=== PATIENT | male | born 2005 | race Caucasian/White ===

== ENCOUNTER 2023-07-28 09:06 | Outpatient (AMB) | payer OTHER, SELFPAY ==
--- NOTE | 2023-07-28 09:10 | A.OFFVIS_ITS ---
Intake Intake Visit Reasons: E-BEE RANCHER: Symptomatic Epilepsy - # not in service Intake Note: Pt presents to the office for new pt evaluation for seizures. He devolped these episodes when he was about 8 years old. He was statrted on Oxcarbazepine and this seems to be working. He hasn't had a seizure in over 2 years. Senior Officer Required: No Allergies No Known Allergies Allergy (Verified 07/28/23 09:20) Medication List - Last Reconciled 07/28/23 by Rossy Candelario MD clindamycin phosphate 1% 1 appl topical BEDTIME latanoprost 0.005% 1 drp ophthalmic (eye) DAILY oxcarbazepine ER (Oxtellar XR) 1,200 mg (2 x 600 mg) PO DAILY oxcarbazepine ER (Oxtellar XR) 300 mg PO DAILY sennosides (senna) 8.6 mg PO DAILY HPI HPI Comments History of Present Illness Details 18y/o with h/o autism spectrum disorder , focal epilepsy and alcohol drug syndrome comes for further management. He is accompanied by his step father who helps with history. His seizures are staring episodes , spacing out with looking to right, eyes looking upwards and some hand twitching lasting seconds. He still has minor episodes . Last major episode was in 2018 . He has been well controlled on Oxtellar XR 300 1 tab 600mg 2 tabs qd. His behavior is good.He sleeps good. He is being home schooled- he graduated high school .His short term memory is not good. He is independent in all his ADLS and right learning life skills like cooking , cleaning etc. [facility] Medical History alcohol syndrome Asthma Autism spectrum disorder Epilepsy Surgical History H/O Spinal surgery Household Members: Family Housing: House Are you a primary neonatal critical care nurse to a significant other at home: Yes Alcohol intake: never Patient Tobacco Use Status: Never used Tobacco Review of Systems Neuro Reports seizure-like activity Physical Exam Const General: cooperative and comfortable Nutritional Appearance: average body habitus Orientation/consciousness: patient oriented x3 Eyes Pupils: Equal, round and reactive pupils present Neuro General: patient oriented x3, gait normal, tone normal and moves all extremities Cranial nerves: Yes Facial sensation intact/muscles of mastication intact, Yes Equal, round and reactive pupils present, Yes Bilaterally intact EOM present, Yes Nystagmus not present, Yes Normal facial strength present, Yes Midline tongue present and Yes Symmetric palate elevation present Cognition (Neuro): normal cognition Gait exam (Neuro): Normal gait present Motor exam (neuro): 5/5 motor strength present throughout and Normal motor muscle tone present throughout Deep tendon reflexes (DTR's): Right triceps reflex intensity grade: 2+, Left triceps reflex intensity grade: 2+, Rt Biceps (C5, C6): 2+, Left biceps reflex intensity grade: 2+, Right brachioradialis reflex intensity grade: 2+, Left brachioradialis reflex intensity grade: 2+, Right patellar reflex intensity grade: 3+ and Left patellar reflex intensity grade: 3+ Coordination: [id number] test normal Assessment & Plan Assessment & Plan (1) Epilepsy: Comment: complex partial seizures Code(s): G40.909 - Epilepsy, unspecified, not intractable, without status epilepticus (2) Autism spectrum disorder: Code(s): F84.0 - Autistic disorder Plan Continue oxtellar XR 300mg 1tab and 600mg 2 tabs qd ( total 1500mg qd) Will check his CBC and CMP Refer to [facility]psy [facility] for further management Orders: Orders Comprehensive Met. Panel Today G40.909 - Epilepsy, unspecified, not intractable, without status epilepticus Complete Blood Count Auto Diff Today G40.909 - Epilepsy, unspecified, not intractable, without status epilepticus Referrals Neurology Referral G40.909 - Epilepsy, unspecified, not intractable, without status epilepticus Medications: New oxcarbazepine ER (Oxtellar XR) must be taken on empty stomach; no food at least 2 hrs before or 1 hr after dose 1,200 mg (2 x 600 mg) PO DAILY 60 tabs 6RF oxcarbazepine ER (Oxtellar XR) must be taken on empty stomach; no food at least 2 hrs before or 1 hr after dose 300 mg PO DAILY 30 tabs 6RF Coding Level of Care Code New Pt Level 4 (96073) Diagnoses Epilepsy G40.909 Autism spectrum disorder F84.0
== END 2023-07-28 09:52 | disposition home or self-care (01) ==
PROVIDERS: PCP Pediatrics; Visit Provider Psychiatry & Neurology Neurology
DX: G40.909 Epilepsy, unspecified, not intractable, without status epilepticus (principal); F84.0 Autistic disorder
CPT/HCPCS: 99204

== ENCOUNTER → 2023-07-28 09:06 | Outpatient (BNVA) | payer OTHER, MEDICAID, SELFPAY | PROVIDERS: PCP Pediatrics; Visit Provider Psychiatry & Neurology Neurology ==

== ENCOUNTER 2025-01-27 09:05 | Outpatient (AMB) | payer OTHER, SELFPAY ==
--- NOTE | 2025-01-27 09:09 | MHC.OFFVIS ---
Vital Signs 01/27/25 09:11 Height 5 ft 3 in Weight 149 lb BMI 26.4 BP 110/50 L Blood Pressure Location Lt brachial Position Sitting Pulse 93 Pulse Source Pulse Oximeter Pulse Oximetry (%) 97 Oxygen Delivery Method Room Air Intake Visit Reasons: f/u for seizures last seen 2022 Intake Note: Patient presents follow up Seizures, Never seen [facility](referral not received on their end). Patient has not had any seizures due to Oxtellar. Accompanied by: Father Allergies No Known Allergies Allergy (Verified 01/27/25 09:14) HPI Comments Details: 19 y/o with h/o autism spectrum disorder, focal epilepsy and alcohol drug syndrome comes for further management. He is accompanied by his step father, Mr. Zapien who helps with history, he adopted Nasir Kraus at 5 weeks. He has been grand-mal seizure free since 11 years of age in 2018, now he still has micro-seizures and has been having them for a while. His grand-mal seizures are well managed on oxcarbazapine ER 2 (600mg) am along with 1 (300mg) in the morning on an empty stomach and waits one hour before having his breakfast. He was being seen by a Pediatric Neurologist at [facility], however since turning 19 he is referred to us for management. His seizures are staring episodes, spacing out with looking to the right, eyes looking upwards and some hand twitching lasting seconds. He still has minor episodes. He has autism and his behavior is good. He sleeps well goes to bed at 11pm and wakes up at 8am. Asthma is well controlled, occasional environmental triggers. He is now enrolled in life skills, learning to cook, and independent in all ADLs. His short term memory is not good, money management tends to be difficult for him and can perform multiple tasks when mindful. Needs step by step instructions with tasks. He likes dancing and goes to [employer] in [place] 2x per week. His diet is okay, he gets constipated, takes laxatives, medicated enema as needed, with miralax or colace. Drinks 4, 12 ounce of water, goes fishing with his family. Denies RLS and Migraines. [facility] Medical History alcohol syndrome Asthma Autism spectrum disorder Epilepsy Surgical History H/O Spinal surgery Social History Household Members: Family Housing: House Are you a primary special needs child caregiver to a significant other at home: Yes Alcohol intake: never Patient Tobacco Use Status: Never used Tobacco Physical Exam Vital Signs: Last Vital Signs Pulse 93 01/27/25 09:11 BP 110/50 L 01/27/25 09:11 Pulse Ox 97 01/27/25 09:11 Oxygen Delivery Method Room Air 01/27/25 09:11 BMI result Body Mass Index 26.4 Const General: cooperative, comfortable and no acute distress Nutritional Appearance: average body habitus Orientation/consciousness: patient oriented x3 HEENT Throat: Yes tonsils normal and Yes uvula midline Eyes General: appearance normal, both eyes and all related structures Pupils: Equal, round and reactive pupils present Resp Effort & Inspection: normal respiratory effort and able to speak in complete sentences Neuro General: patient oriented x3 and moves all extremities Cranial nerves: Yes Facial sensation intact/muscles of mastication intact, Yes Equal, round and reactive pupils present, Yes Normal accommodation reflex present, Yes Normal facial strength present, Yes Midline tongue present, Yes Ability to bilaterally rotate head present and Yes Ability to bilaterally elevate shoulders present Gait exam (Neuro): Ataxic gait present (improved without shoes - upon tandem walking) Motor exam (neuro): 5/5 motor strength present throughout and Normal motor muscle tone present throughout Deep tendon reflexes (DTR's): Right triceps reflex intensity grade: 2+, Left triceps reflex intensity grade: 2+, Rt Biceps (C5, C6): 2+, Left biceps reflex intensity grade: 2+, Right brachioradialis reflex intensity grade: 2+, Left brachioradialis reflex intensity grade: 2+, Right patellar reflex intensity grade: 2+, Left patellar reflex intensity grade: 2+, Right ankle reflex intensity grade: 2+ and Left ankle reflex intensity grade: 2+ Coordination: [id number] test normal and other (tandem gait is ataxic and improves without shoes.) Results Reviewed Results Reviewed: Epilepscy continue on 1200mg +300mg po oxcabazepine ER. Assessment & Plan Assessment & Plan (1) Epilepsy: Comment: complex partial seizures - Code(s): G40.909 - Epilepsy, unspecified, not intractable, without status epilepticus Category: Medical Qualifiers: Epilepsy type: partial symptomatic Intractability: intractable Status epilepticus: without status epilepticus Partial seizure type: with complex partial seizures Qualified Code(s): G40.219 - Localization-related (focal) (partial) symptomatic epilepsy and epileptic syndromes with complex partial seizures, intractable, without status epilepticus (2) Autism spectrum disorder: Code(s): F84.0 - Autistic disorder Category: Medical (3) Asthma: Code(s): J45.909 - Unspecified asthma, uncomplicated Category: Medical Qualifiers: Asthma severity: unspecified severity Asthma persistence: intermittent Asthma complication type: unspecified Qualified Code(s): J45.20 - Mild intermittent asthma, uncomplicated Plan Seizure complex partial continue 1200mg oxcarbazepine ER oxtellar 1200mg PO daily along with the 300mg oxcarbazepine ER daily. Avoid triggers and stressors, optimize sleep, no driving and high risk activities. Asthma avoid environmental triggers, use inhaler as needed. Autism, continue to engage in daily activities in summer camp, and dance classes as tolerable. F/U with Dr. Candelario in 6 months for evaluation of supportive care. Medications: Changed From oxcarbazepine ER (Oxtellar XR) must be taken on empty stomach; no food at least 2 hrs before or 1 hr after dose 1,200 mg (2 x 600 mg) PO DAILY 60 tabs 6RF G40.909 - Epilepsy, unspecified, not intractable, without status epilepticus To oxcarbazepine ER (Oxtellar XR) must be taken on empty stomach; no food at least 2 hrs before or 1 hr after dose 1,200 mg (2 x 600 mg) PO DAILY 6 months 360 tabs 6RF epilepsy MDD 1200mg G40.909 - Epilepsy, unspecified, not intractable, without status epilepticus From oxcarbazepine ER (Oxtellar XR) must be taken on empty stomach; no food at least 2 hrs before or 1 hr after dose 300 mg PO DAILY 30 tabs 6RF G40.909 - Epilepsy, unspecified, not intractable, without status epilepticus To oxcarbazepine ER (Oxtellar XR) must be taken on empty stomach; no food at least 2 hrs before or 1 hr after dose 300 mg PO DAILY 6 months 180 tabs 6RF epilepsy MDD 300mg G40.909 - Epilepsy, unspecified, not intractable, without status epilepticus Patient Instructions: Sleep Hygiene provided: set a scheduled bedtime and wake time to help regulate the circadian rhythm and balance the release of pituitary hormones. Sleep in a dark room, temperatures below 68 degrees, and no devices n bed. Limit caffeinated products 6 hours prior to bed, and limit fluids 2-4 hours prior to bed. Gentle night yoga, diffusing essential oils, and playing soft music can be relaxing. Coding Level of Care Code Est Pt Level 4 (56054) Diagnoses Partial symptomatic epilepsy with complex partial seizures, intractable, without status epilepticus G40.219 Epilepsy type: partial symptomatic Intractability: intractable Status epilepticus: without status epilepticus Partial seizure type: with complex partial seizures Autism spectrum disorder F84.0 Intermittent asthma, unspecified asthma severity, unspecified whether complicated J45.20 Asthma severity: unspecified severity Asthma persistence: intermittent Asthma complication type: unspecified Time Spent (min) 35
[2025-01-27 09:11] VITALS: BP 110/50; PULSE 93; O2SAT 97; BMI 26.4
--- OUTSIDE RECORDS SUMMARY | 2025-01-27 09:23 | XMS_ITS | Encounter Summary ---
Author Organization [facility] Address [address] [place] [address] Phone Care Team Providers Care Site Safety Manager Name Role Phone Nicol Gordillo MD Primary Care Provider [phone] Reason for Visit * Reason Comments Med Refill Encounter Details Date Type Department Care Team (Late st Contact Info) Description 09/03/2018 [facility] [address] [address] Nicol Gordillo MD [address] [place] [id number] Seasonal allergic rhinitis, unspecified trigger (Primary Dx) Social History Tobacco Use Types Packs/Day Years Used Date Smoking Tobacco: Never Assessed Sex and Gender Information Value Date Recorded Sex Assigned at Male 06/27/2020 2:26 PM EDT Legal Sex Male 6:25 PM EDT Gender Identity Male 06/27/2020 2:26 PM EDT Sexual Orientation Straight 06/27/2020 2: 26 PM EDT documented as of this encounter Miscellaneous Notes * Telephone Encounter - Nicol Gordillo MD - 09/03/2018 1:44 PM EST rx sent. * Telephone Encounter - Florence Garnica MA - 09/03/2018 1:08 PM EST Request for refill on Loratadine [facility] 5 MG/ ML syrup Forward to Dr. Howe for review and send to pharmacy documented in this encounter Plan of Treatment Not on file documented as of this encounter Visit Diagnoses Diagnosis Seasonal allergic rhinitis, unspecified trigger- Primary documented in this encounter Care Teams Site Safety Manager Relationship Specialty Start Date End Date Nicol Gordillo MD [address] [place] [address] PCP - General 01/13/18 06/02/24 documented as of this encounter
== END 2025-01-27 10:16 | disposition home or self-care (01) ==
LOC: HO.HSMS 09:06
PROVIDERS: PCP Internal Medicine; Visit Provider Physician Assistant Medical
DX: G40.219 Localization-related (focal) (partial) symptomatic epilepsy and epileptic syndromes with complex partial seizures, intractable, without status epilepticus (principal); F84.0 Autistic disorder; J45.20 Mild intermittent asthma, uncomplicated
CPT/HCPCS: 99214

== ENCOUNTER → 2025-01-27 09:05 | Outpatient (BNVA) | payer OTHER, SELFPAY | PROVIDERS: PCP Internal Medicine; Visit Provider Physician Assistant Medical | DX: G40.219 Localization-related (focal) (partial) symptomatic epilepsy and epileptic syndromes with complex partial seizures, intractable, without status epilepticus (principal); J45.20 Mild intermittent asthma, uncomplicated; F84.0 Autistic disorder | CPT/HCPCS: 99212 ==

== ENCOUNTER 2025-08-08 12:59 | Outpatient (AMB) | payer OTHER, SELFPAY ==
--- NOTE | 2025-08-08 12:55 | MHC.OFFVIS ---
Intake Visit Reasons: F/U Derrick Car Operator Required: No Accompanied by: Father Allergies No Known Allergies Allergy (Verified 08/08/25 12:57) Medication List - Last Reconciled 08/08/25 by Rossy Candelario MD clindamycin phosphate 1% 1 appl topical BEDTIME latanoprost 0.005% 1 drp ophthalmic (eye) DAILY oxcarbazepine ER (Oxtellar XR) 1,200 mg (2 x 600 mg) PO DAILY 6 months MDD 1200mg oxcarbazepine ER (Oxtellar XR) 300 mg PO DAILY 6 months MDD 300mg sennosides (senna) 8.6 mg PO DAILY HPI Comments Details: Telehealth due to bad weather 19 y/o with h/o autism spectrum disorder, focal epilepsy and alcohol drug syndrome calls for follow up He is accompanied by his step father, Mr. Zapien who helps with history, he adopted Nasir Kraus at 5 weeks. No change since last visit , no mini seizure like activity. History form last visit-He has been grand-mal seizure free since 11 years of age in 2018, now he still has micro-seizures and has been having them for a while. His grand-mal seizures are well managed on oxcarbazapine ER 2 (600mg) am along with 1 (300mg) in the morning on an empty stomach and waits one hour before having his breakfast. He was being seen by a Pediatric Neurologist at [facility], however since turning 19 he is referred to us for management. His seizures are staring episodes, spacing out with looking to the right, eyes looking upwards and some hand twitching lasting seconds. He still has minor episodes. He has autism and his behavior is good. He sleeps well goes to bed at 11pm and wakes up at 8am. Asthma is well controlled, occasional environmental triggers. He is now enrolled in life skills, learning to cook, and independent in all ADLs. His short term memory is not good, money management tends to be difficult for him and can perform multiple tasks when mindful. Needs step by step instructions with tasks. He likes dancing and goes to [employer] in [place] 2x per week. His diet is okay, he gets constipated, takes laxatives, medicated enema as needed, with miralax or colace. Drinks 4, 12 ounce of water, goes fishing with his family. Denies RLS and Migraines. [facility] Medical History alcohol syndrome Asthma Autism spectrum disorder Epilepsy Surgical History H/O Spinal surgery Social History Household Members: Family Housing: House Are you a primary residential child care counselor to a significant other at home: Yes Alcohol intake: never Patient Tobacco Use Status: Never used Tobacco Physical Exam Const General: cooperative, comfortable and no acute distress Nutritional Appearance: average body habitus Resp Effort & Inspection: normal respiratory effort and able to speak in complete sentences Neuro General: moves all extremities Gait exam (Neuro): Ataxic gait present (improved without shoes - upon tandem walking) Telehealth Telehealth Telehealth Platform: [facility] Location of provider rendering services: practice address Location of patient: address on file Patient Identification confirmed using: Name, : Yes Telehealth method: video Patient verbally consented to treatment: Yes Patient verbally consented to billing insurance company: Yes Patient informed of any privacy concerns related to visit: Yes Minutes spent on Phone/Video with Pt.: 19 Assessment & Plan Assessment & Plan (1) Epilepsy: Comment: complex partial seizures - Code(s): G40.909 - Epilepsy, unspecified, not intractable, without status epilepticus Category: Medical Qualifiers: Epilepsy type: partial symptomatic Partial seizure type: with complex partial seizures Intractability: intractable Status epilepticus: without status epilepticus Qualified Code(s): G40.219 - Localization-related (focal) (partial) symptomatic epilepsy and epileptic syndromes with complex partial seizures, intractable, without status epilepticus (2) Autism spectrum disorder: Code(s): F84.0 - Autistic disorder Category: Medical (3) Asthma: Code(s): J45.909 - Unspecified asthma, uncomplicated Category: Medical Qualifiers: Asthma severity: unspecified severity Asthma persistence: intermittent Asthma complication type: unspecified Qualified Code(s): J45.20 - Mild intermittent asthma, uncomplicated Plan Seizure complex partial continue 1200mg oxcarbazepine ER PO daily along with the 300mg oxcarbazepine ER daily. Avoid triggers and stressors, optimize sleep, no driving and high risk activities. Asthma avoid environmental triggers, use inhaler as needed. Autism, continue to engage in daily activities in summer camp, and dance classes as tolerable. Medications: Refilled oxcarbazepine ER (Oxtellar XR) must be taken on empty stomach; no food at least 2 hrs before or 1 hr after dose 1,200 mg (2 x 600 mg) PO DAILY 360 tabs 6RF epilepsy 6 months MDD 1200mg G40.909 - Epilepsy, unspecified, not intractable, without status epilepticus oxcarbazepine ER (Oxtellar XR) must be taken on empty stomach; no food at least 2 hrs before or 1 hr after dose 300 mg PO DAILY 180 tabs 6RF epilepsy 6 months MDD 300mg G40.909 - Epilepsy, unspecified, not intractable, without status epilepticus Coding Level of Care Code Tele Est Pt Level 4 (57475) Diagnoses Partial symptomatic epilepsy with complex partial seizures, intractable, without status epilepticus G40.219 Epilepsy type: partial symptomatic Partial seizure type: with complex partial seizures Intractability: intractable Status epilepticus: without status epilepticus Autism spectrum disorder F84.0 Intermittent asthma, unspecified asthma severity, unspecified whether complicated J45.20 Asthma severity: unspecified severity Asthma persistence: intermittent Asthma complication type: unspecified Time Spent (min) 21
--- OUTSIDE RECORDS SUMMARY | 2025-08-08 14:53 | XMS_ITS | Encounter Summary ---
Author Organization [facility] Address [address] [place] [address] Phone Care Team Providers Care Printer Helper Name Role Phone Nicol Gordillo MD Primary Care Provider [phone] Reason for Visit * Reason Comments Med Refill Encounter Details Date Type Department Care Team (Late st Contact Info) Description 09/03/2018 [facility]ill [facility] [address] [address] Nicol Gordillo MD [address] [place] [id number] Seasonal allergic rhinitis, unspecified trigger (Primary Dx) [...] Primary documented in this encounter Care Teams Printer Helper Relationship Specialty Start Date End Date Nicol Gordillo MD [address] [place] [address] PCP - General 01/13/18 06/02/24 documented as of this encounter
--- OUTSIDE RECORDS SUMMARY | 2025-08-08 14:53 | XMS_ITS | Encounter Summary ---
Author Organization [facility] Address [address] [place] [address] Care Team Providers Care Bottom Pounder Cement Shoes Name Role Phone Nicol Gordillo MD Primary Care Provider [phone] Reason for Visit * Reason Comments Medication Refill Encounter Details Date Type Department Care Team ([facility] st Contact Info) Description 06/19/2022 Refill [facility], [address], [address] [place] [address] Berenice Barba MD [address] [place] [address] [address] [place] [address] Glaucoma suspect of both eyes Social History Tobacco Use Types Packs/Day Years Used Date Smoking Tobacco: Passive Smo ke Exposure - Never Smoker Alcohol Use Standard Drinks/Week Comments Not Asked 0 (1 standard drink = 0.6 oz pur e alcohol) Sex and Gender Information Value Date Recorded Sex Assigned at Not on file Legal Sex Male 8:37 AM EDT Gender Identity Not on file Sexual Orientation Not on file documented as of this encounter Plan of Treatment Not on file documented as of this encounter Visit Diagnoses Diagnosis Glaucoma suspect of both eyes Unspecified preglaucoma documented in this encounter Care Teams Bottom Pounder Cement Shoes Relationship Specialty Start Date End Date Nicol Gordillo MD [address] [place] [id number] PCP - General 05/22/16 documented as of this encounter
--- OUTSIDE RECORDS SUMMARY | 2025-08-08 14:53 | XMS_ITS | Encounter Summary ---
Author Organization [facility] Address [address] [place] [address] Care Team Providers Care Junior Software Developer Name Role Phone Nicol Gordillo MD Primary Care Provider [phone] Reason for Visit * Reason Comments Medication Refill Encounter Details Date Type Department Care Team ([facility] st Contact Info) Description 11/06/2022 Refill [facility], [address], [address] [place] [address] Berenice Barba MD [address] [place] [address] [address] [place] [address] Glaucoma suspect of both eyes Social History Tobacco Use Types Packs/Day Years Used Date Smoking Tobacco: Never Passive Smoke Exposure: Yes Alcohol Use Standard Drinks/Week Comments Not Asked [...] preglaucoma documented in this encounter Care Teams Junior Software Developer Relationship Specialty Start Date End Date Nicol Gordillo MD [address] [place] [id number] PCP - General 05/22/16 documented as of this encounter
--- OUTSIDE RECORDS SUMMARY | 2025-08-08 14:53 | XMS_ITS | Encounter Summary ---
Author Organization [facility] Address [address] [place] [address] Care Team Providers Care Log Handling Equipment Operator Name Role Phone Nicol Gordillo MD Primary Care Provider [phone] Reason for Visit * Reason Comments Medication Refill Encounter Details Date Type Department Care Team ([facility] st Contact Info) Description 01/22/2022 Refill [facility] [address] [place] [address] Daxa Guadalupe MD [address] [place] [address] Localization-related (focal) (partial) symptomatic epilepsy and epileptic syndromes with simple partial seizures, not intractable, without status epilepticus; Focal epilepsy Social History Tobacco Use Types Packs/Day Years [...] on file documented as of this encounter Miscellaneous Notes * Telephone Encounter - Siobhan Rogers RN - 01/22/2022 10:21 AM EDT Oxtellar XR dosing verified with 08/14/21 refill encounter (taking 1500mg daily- two 600mg tabs and one 300mg tab) 300mg and 600mg tabs are pended. MAs, please schedule follow up visit. documented in this encounter Plan of Treatment Not on file documented as of this encounter Visit Diagnoses Diagnosis Localization-related (focal) (partial) symptomatic epilepsy and epileptic syndromes with simple partial seizures, not intractable, without status epilepticus Focal epilepsy documented in this encounter Care Teams Log Handling Equipment Operator Relationship Specialty Start Date End Date Nicol Gordillo MD [address] [place], [place] [id number] PCP - General 05/22/16 documented as of this encounter
--- OUTSIDE RECORDS SUMMARY | 2025-08-08 14:53 | XMS_ITS | Encounter Summary ---
Author Organization [facility] Address [address] [place] [address] Care Team Providers Care Underwriting Director Name Role Phone Nicol Gordillo MD Primary Care Provider [phone] Reason for Visit * Reason Comments Medication Refill Encounter Details Date Type Department Care Team ([facility] st Contact Info) Description 08/14/2021 Refill [facility] [address] [place] [address] Flo Nugent MD [address] [place] [address] Localization-related (focal) (partial) symptomatic epilepsy and epileptic [...] encounter Miscellaneous Notes * Telephone Encounter - Tono Mcgrath - 08/14/2021 1:55 PM EST Left voice message for a follow-up appt * Telephone Encounter - Kenzie Rendon RN - 08/14/2021 10:11 AM EST Last appointment: 05/25/2020 Next appointment: Visit date not found Dose of oxtellar verified with last office visit Patient needs follow up appt documented in this encounter Plan of Treatment Not on file documented as of this encounter Visit Diagnoses Diagnosis Localization-related (focal) (partial) symptomatic epilepsy and epileptic syndromes with simple partial seizures, not intractable, 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
--- OUTSIDE RECORDS SUMMARY | 2025-08-08 14:53 | XMS_ITS | Encounter Summary ---
Author Organization [facility] Address [address] [place] [address] Care Team Providers Care Supervisor Scrap Preparation Name Role Phone Nicol Gordillo MD Primary Care Provider [phone] Reason for Visit * Reason Comments Medication Refill Encounter Details Date Type Department Care Team ([facility] st Contact Info) Description 01/16/2022 Refill [facility] Gastroenterology, [place] [address] [place] [address] Ara Jordan MD [address] [place] [address] Slow transit constipation Social History Tobacco Use Types Packs/Day Years [...] encounter Miscellaneous Notes * Telephone Encounter - Marisa Gamboa RN - 01/16/2022 8:37 AM EDT Last visit: 09/10/21 telemedicine Next visit: Follow up in 3-4 months, no return visit scheduled Weight: 62.8 kg Allergies: reviewed Current dose: senna (SENOKOT) 8.6 mg tablet Take 1.5 tablet twice daily by mouth Admin- please schedule return visit documented in this encounter Plan of Treatment Not on file documented as of this encounter Visit Diagnoses Diagnosis Slow transit constipation documented in this encounter Care Teams Supervisor Scrap Preparation Relationship Specialty Start Date End Date Nicol Gordillo MD [address] [place] [address] PCP - General 05/22/16 documented as of this encounter
--- OUTSIDE RECORDS SUMMARY | 2025-08-08 14:53 | XMS_ITS | Encounter Summary ---
Author Organization [facility] Address [address] [place] [address] Care Team Providers Care Flight Line Service Attendant Name Role Phone Nicol Gordillo MD Primary Care Provider Reason for Visit * Reason Comments Medication Refill Encounter Details Date Type Department Care Team ([facility] st Contact Info) Description 10/03/2021 Refill [facility] Ophthalmology, [address] Floor, [address] [place] [id number] Annika Tovar MD [address] [place] [address] [place] [address] Glaucoma suspect of both eyes Social History [...] preglaucoma documented in this encounter Care Teams Flight Line Service Attendant Relationship Specialty Start Date End Date Nicol Gordillo MD [address] [place] [address] PCP - General 05/22/16 documented as of this encounter
--- OUTSIDE RECORDS SUMMARY | 2025-08-08 14:54 | XMS_ITS | Encounter Summary ---
Author Organization [facility] Address [address] [place] [address] Care Team Providers Care Kitchen Assistant Name Role Phone Nicol Gordillo MD Primary Care Provider Reason for Visit * Reason Comments Medication Refill Encounter Details Date Type Department Care Team ([facility] st Contact Info) Description 12/26/2022 Refill [facility] Ophthalmology, [address] Floor, [address] [place] [phone] Berenice Barba MD [address] [place] [address] [address] [place] [address] Glaucoma suspect of both eyes Social History [...] encounter Miscellaneous Notes * Telephone Encounter - Berenice Barba MD - 12/29/2022 8:06 AM EDT I have not seen this patient for 1.5 years and they do not have an appointment with me. documented in this encounter Plan of Treatment Not on file documented as of this encounter Visit Diagnoses Diagnosis Glaucoma suspect of both eyes Unspecified preglaucoma documented in this encounter Care Teams Kitchen Assistant Relationship Specialty Start Date End Date Nicol Gordillo MD [address] [place] [address] PCP - General 05/22/16 documented as of this encounter
--- OUTSIDE RECORDS SUMMARY | 2025-08-08 14:54 | XMS_ITS | Encounter Summary ---
Author Organization [facility] Address [address] [place] [address] Care Team Providers Care Clinical Account Executive Name Role Phone Nicol Gordillo MD Primary Care Provider [phone] Reason for Visit * Reason Comments Medication Refill Encounter Details Date Type Department Care Team ([facility] st Contact Info) Description 02/12/2023 Refill [facility] [address] [place] [address] Daxa Guadalupe MD [address] [place] [address] Focal epilepsy; Localization-related (focal) (partial) symptomatic epilepsy and epileptic syndromes with simple partial seizures, not intractable, without status epilepticus Social History Tobacco Use Types Packs/Day Years [...] Telephone Encounter - Siobhan Rogers RN - 02/26/2023 11:11 AM EDT Spoke with dad Jn and let him know refills have been sent through until the appointment. * Telephone Encounter - Siobhan Rogers RN - 02/26/2023 9:04 AM EDT Dad left a message on the nursing line. They have an appointment with Adult Neurology set up but this will not be until 07/28/23 so dad is asking if additional refills can be sent for the two strengths of Oxtellar. Pended with refills through this date. Once sent, nursing please call dad and leave a message letting him know. * Telephone Encounter - Daxa Dominguez MD - 02/12/2023 9:34 AM EDT See other refill encounter - he has an adult neuro appointment set up - this will be the last refills given * Telephone Encounter - Siobhan Rogers RN - 02/12/2023 8:[address] Aldo Dominguez- Please advise on refill request. MAs, please schedule follow up visit. Refill request received for Oxtellar XR 600mg. Dose verified with last office visit on 05/25/2020 (taking 1500mg daily- two 600mg tabs and one 300mg tab). ?? There is no follow up on file. There were scheduled follow up visits on 09/12/22, 09/29/22 and 10/03/22but all were no shows. ?? James also has not had any labs completed since 2019. 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
--- OUTSIDE RECORDS SUMMARY | 2025-08-08 14:54 | XMS_ITS | Encounter Summary ---
Author Organization [facility] Address [address] [place] [address] Care Team Providers Care Hotel Front Desk Agent Name Role Phone Nicol Gordillo MD Primary Care Provider [phone] Reason for Visit * Reason Comments Medication Refill Encounter Details Date Type Department Care Team ([facility] st Contact Info) Description 02/12/2023 Refill [facility] Ophthalmology, [address], [address] [place] [address] Berenice Barba MD [address] [place] [address] [address] [place] [address] Glaucoma suspect of both eyes Social History [...] preglaucoma documented in this encounter Care Teams Hotel Front Desk Agent Relationship Specialty Start Date End Date Nicol Gordillo MD [address] [place] [address] PCP - General 05/22/16 documented as of this encounter
--- OUTSIDE RECORDS SUMMARY | 2025-08-08 14:54 | XMS_ITS | Encounter Summary ---
Author Organization [facility] Address [address] [place] [address] Care Team Providers Care Quantitative Equity Head Name Role Phone Nicol Gordillo MD Primary Care Provider [phone] Reason for Visit * Reason Comments Medication Refill Encounter Details Date Type Department Care Team ([facility] st Contact Info) Description 02/20/2021 Refill [facility] [address] [place] [address] Daxa Guadalupe MD [address] [place] [address] Focal epilepsy Social History Tobacco Use Types [...] encounter Miscellaneous Notes * Telephone Encounter - Kenzie Rendon RN - 02/20/2021 7:42 AM EDT Last appointment: 05/25/2020 Next appointment: Visit date not found Dose of oxtellar verified with last office visit Patient needs follow up visit documented in this encounter Plan of Treatment Not on file documented as of this encounter Visit Diagnoses Diagnosis Focal epilepsy documented in this encounter Care Teams Quantitative Equity Head Relationship Specialty Start Date End Date Nicol Gordillo MD [address] [place] [address] PCP - General 05/22/16 documented as of this encounter
--- OUTSIDE RECORDS SUMMARY | 2025-08-08 14:54 | XMS_ITS | Encounter Summary ---
Author Organization [facility] Address [address] [place] [address] Care Team Providers Care Digital Forensics Examiner Name Role Phone Nicol Gordillo MD Primary Care Provider [phone] Reason for Visit * Reason Comments Medication Refill Encounter Details Date Type Department Care Team ([facility] st Contact Info) Description 08/09/2017 Refill [facility] [place] [address] [place] [address] Daxa Guadalupe MD [address] [place] [address] Focal epilepsy Social History Tobacco Use Types [...] Telephone Encounter - Kenzie Rendon RN - 08/12/2017 8:22 AM EST REFUSE dose is 600 mg/ 1050 (using 600 mg size tablet and 150 mg size tablets). Our system shows refills. Mom will check with pharmacy * Telephone Encounter - Maura Shannon RN - 08/10/2017 9:32 AM EST Left message for mom to call back to confirm oxcarbazepine dose. Refill request was for 1.5 tablets(900 mg) BID, but most recent documentation shows that Trileptal dose was 600 mg AM/ 1050 mg PM. documented in this encounter Plan of Treatment Not on file documented as of this encounter Visit Diagnoses Diagnosis Focal epilepsy documented in this encounter Care Teams Digital Forensics Examiner Relationship Specialty Start Date End Date Nicol Gordillo MD [address] [place] [address] PCP - General 05/22/16 documented as of this encounter
--- OUTSIDE RECORDS SUMMARY | 2025-08-08 14:54 | XMS_ITS | Encounter Summary ---
Author Organization [facility] Address [address] [place] [address] Care Team Providers Care Support Specialist Name Role Phone Nicol Gordillo MD Primary Care Provider [phone] Reason for Visit * Reason Comments Medication Refill Encounter Details Date Type Department Care Team ([facility] st Contact Info) Description 02/27/2023 Refill [facility] Ophthalmology, [address], [address] [place] [phone] Berenice Barba MD [address] [place] [address] [address] [place] [phone] Glaucoma suspect of both eyes Social History [...] Telephone Encounter - Berenice Barba MD - 03/04/2023 8:13 AM EDT This patient does not have follow up visit scheduled with me and I have not seen them in over a year. I would like them to schedule a follow up and be seen before we prescribe refills. documented in this encounter Plan of Treatment Not on file documented as of this encounter Visit Diagnoses Diagnosis Glaucoma suspect of both eyes Unspecified preglaucoma documented in this encounter Care Teams Support Specialist Relationship Specialty Start Date End Date Nicol Gordillo MD [address] [place] [address] PCP - General 05/22/16 documented as of this encounter
--- OUTSIDE RECORDS SUMMARY | 2025-08-08 14:54 | XMS_ITS | Encounter Summary ---
Author Organization [facility] Address [address] [place] [address] Care Team Providers Care [employer] Name Role Phone Nicol Gordillo MD Primary Care Provider [phone] Reason for Visit * Reason Comments Medication Refill Encounter Details Date Type Department Care Team ([facility] Contact Info) Description 03/03/[address] [place] [phone] Daxa Guadalupe MD [address] [place] [address] Focal epilepsy (Primary Dx) Social History Tobacco Use Types [...] encounter Miscellaneous Notes * Telephone Encounter - Maura Lozano RN - 03/05/2020 3:17 PM EDT Called dad to let him know that scripts were sent to the pharmacy. He verbalized understanding and will follow up with them. He had no further questions at this time. * Telephone Encounter - Maura Lozano RN - 03/05/2020 1:56 PM EDT Received a call from dad who was following up on script for Nasir's Oxtellar. They only have enough medication for tonight. Dr. Aldo Dominguez- please approve script Dad requested a call back once this has been done so he can follow up with pharmacy. * Telephone Encounter - Siobhan Galeana MA - 03/05/2020 9:26 AM EDT Called mom and scheduled follow up appointment. * Telephone Encounter - Mari Hammonds RN - 03/05/2020 9:18 AM EDT Dose verified from 09/07/2019 refill encounter and 09/15/2019 office visit. No follow up scheduled Dr. Aldo Dominguez: Please approve. Mas: please schedule follow up. documented in this encounter Plan of Treatment Not on file documented as of this encounter Visit Diagnoses Diagnosis Focal epilepsy- Primary documented in this encounter Care Teams [employer] Relationship Specialty Start Date End Date Nicol Gordillo MD [address] [place] [address] PCP - General 05/22/16 documented as of this encounter
--- OUTSIDE RECORDS SUMMARY | 2025-08-08 14:54 | XMS_ITS | Encounter Summary ---
Author Organization [facility] Address [address] [place] [address] Phone Care Team Providers Care Mexican Food Maker Name Role Phone Nicol Gordillo MD Primary Care Provider [phone] Reason for Visit * Reason Comments Med Refill Encounter Details Date Type Department Care Team (Late st Contact Info) Description 04/25/2021 [facility]ill [facility] [address] [address] Candis Leonard MD [address] [place] [address] Asthma, unspecified asthma severity, unspecified whether complicated, unspecified whether persistent Social History Tobacco Use Types Packs/Day Years Used Date Smoking Tobacco: Never Assessed Sex and Gender Information Value Date Recorded Sex Assigned at Male 06/27/2020 2:26 PM EDT Legal Sex Male 6:25 PM EDT Gender Identity Male 06/27/2020 2:26 PM EDT Sexual Orientation Straight 06/27/2020 2: 26 PM EDT documented as of this encounter Miscellaneous Notes * Telephone Encounter - Lavonne Gonzalez NP - 04/25/2021 12:35 PM EDT Declined, this was just filled last week * Telephone Encounter - Tracy Pond - 04/25/2021 8:16 AM EDT Request for proair wcc 06/27/20 Last filled 04/15 documented in this encounter Plan of Treatment Not on file documented as of this encounter Visit Diagnoses Diagnosis Asthma, unspecified asthma severity, unspecified whether complicated, unspecified whether persistent documented in this encounter Care Teams Mexican Food Maker Relationship Specialty Start Date End Date Nicol Gordillo MD [address] [place] [address] PCP - General 01/13/18 06/02/24 documented as of this encounter
--- OUTSIDE RECORDS SUMMARY | 2025-08-08 14:54 | XMS_ITS | Encounter Summary ---
Author Organization [facility] Address [address] [place] [address] Care Team Providers Care Customer Service Officer Name Role Phone Nicol Gordillo MD Primary Care Provider [phone] Reason for Visit * Reason Comments Medication Refill Encounter Details Date Type Department Care Team ([facility] st Contact Info) Description 03/27/2023 Refill [facility] Ophthalmology, [address], [address] [place] [address] Berenice Barba MD [address] [place] [address] [address] [place] [address] Glaucoma suspect of both eyes Social History [...] preglaucoma documented in this encounter Care Teams Customer Service Officer Relationship Specialty Start Date End Date Nicol Gordillo MD [address] [place] [address] PCP - General 05/22/16 documented as of this encounter
--- OUTSIDE RECORDS SUMMARY | 2025-08-08 14:54 | XMS_ITS | Clinical Summary ---
Author Organization [facility] Address [address] [place] [address] Care Team Providers Care Alemite Operator Name Role Phone Nicol Gordillo MD Primary Care Provider [phone] Source Comments Please note that some or all of the patient's information could have additional privacy protections. State laws allow health care providers to render certain types of treatment to minors without parental consent. Please do not assume that this information can be shared solely by obtaining just the consent of the patient's parent/guardian. Please determine if all or part of the patient's care was rendered without parent/guardian involvement. And, if so, obtain the minor's consent prior to disclosure.[facility] Allergies Active Allergy Reactions Criticality Noted Date Comments Levetiracetam 06/14/2020 Medications loratadine (CLARITIN) 10 mg tablet 6 Active multivitamin capsule Take 1 capsule by mouth daily Active carbamide peroxide (DEBROX) 6.5 % otic solution Place in ear(s) Active clindamycin (CLINDAGEL) 1 % gel Apply topically 8 Active fluticasone propionate (FLONASE) 50 mcg/actuation nasal spray SPRAY 1 SPRAY INTO EACH NOSTRIL EVERY DAY 0 Active cholecalciferol, vitamin D3, 25 mcg (1,000 unit) tablet Take by mouth Active loratadine (CLARITIN) 10 mg tablet 6 Active multivitamin capsule Take by mouth Active albuterol (PROVENTIL HFA;VENTOLIN HFA) 90 mcg/actuation inhaler INHALE 2 PUFFS BY MOUTH EVERY 4 HOURS NEEDED FOR WHEEZE 0 Active albuterol (PROVENTIL HFA;VENTOLIN HFA) 90 mcg/actuation inhaler Inhale into the lungs 0 Active albuterol (PROVENTIL HFA;VENTOLIN HFA) 90 mcg/actuation inhaler INHALE 2 PUFFS EVERY 4 HOURS NEEDED FOR WHEEZING OR SHORTNESS OF BREATH. 1 Active albuterol (PROVENTIL HFA;VENTOLIN HFA) 90 mcg/actuation inhaler INHALE 2 PUFFS BY MOUTH EVERY 4 HOURS NEEDED FOR WHEEZING OR SHORTNESS OF BREATH 1 Active fluticasone propionate (FLONASE) 50 mcg/actuation nasal spray SPRAY 1 SPRAY INTO EACH NOSTRIL EVERY DAY 1 Active albuterol (PROVENTIL HFA;VENTOLIN HFA) 90 mcg/actuation inhaler Take 2 puffs by mouth every 4 (four) hours as needed 2 Active fluticasone propionate (FLONASE) 50 mcg/actuation nasal spray 1 spray by Each Nare route daily 2 Active cholecalciferol, vitamin D3, 25 mcg/spray 1,000unit/spray [place], Suspension Take by mouth daily Active multivitamin therapeutic with minerals (THERAPEUTIC-M) 27-0.4 mg Tablet Take by mouth Active clindamycin-benzo yl peroxide (BENZACLIN) gel Apply once daily 2 Active albuterol (PROVENTIL HFA;VENTOLIN HFA) 90 mcg/actuation inhaler Inhale 2 puffs into the lungs every 4 (four) hours as needed 3 Active OXcarbazepine (OXTELLAR XR) 300 mg Tablet Extended Release 24 hrIndications:Loc alization-related (focal) (partial) symptomatic epilepsy and epileptic syndromes with simple partial seizures, not intractable, without status epilepticus TAKE 1 TABLET (300 MG) DAILY ALONG WITH 600 MG TABLETS FOR TOTAL DOSE OF 1500 MG DAILY. 30 tablet 4 3 Active OXcarbazepine (OXTELLAR XR) 600 mg Tablet Extended Release 24 hrIndications:Foc al epilepsy Take 2 tablets (1200mg) daily 60 tablet 4 3 Active acetaminophen (TYLENOL) 500 MG tablet Take 1,000 mg by mouth 3 Active ibuprofen (MOTRIN) 600 MG tablet TAKE 1 TABLET BY MOUTH 3 TIMES A DAY NEEDED FOR PAIN 3 Active latanoprost (XALATAN) 0.005 % ophthalmic solution 3 Active SENNA 8.6 mg tabletIndications :Slow transit constipation TAKE 2 TABLETS BY MOUTH EVERY DAY AT NIGHT 180 tablet 3 5 Active polyethylene glycol (PURELAX) 17 gram/dose powderIndications :Slow transit constipation TAKE 51 G BY MOUTH DAILY 1530 g 11 5 Active Active Problems Problem Noted Date Diagnosed Date Family history of premature coronary heart disea se 06/27/2020 Overview (12/13/2020): Normal lipids 06/2020 Last Assessment & Plan: Since bio mom of a heart attack at age 47 will check labs. 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 Celiac and thyroid screens normal. 08/2020 continue Miralax and ExLax Last Assessment & Plan: Being treated by Dr Jordan at [facility] with Miralax and ExLax alcohol spectrum disorder 09/21/2019 Acne 06/10/2017 Overview (12/13/2020): Last Assessment & Plan: Doing well on topicals. Asthma 06/10/2017 Overview (12/13/2020): Last Assessment & Plan: Mom says so far doing well off his preventers, usually starts them in Fall. She would like to hold off for now. If needing Albuterol on a regular basis or coughing with exercise, mom to call Dr Solis and consider restarting preventers. 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 Currently, good control with Trileptal Last Assessment & Plan: Has done very well on low dose Oxcarbazine, follow up with Neuro at [facility]. Raynaud's syndrome without gangrene 06/10/2017 Overview (12/13/2020): Labs including AMBROSE normal Last Assessment & Plan: Mom is concerned about his purple feet. They are not painful. Reassurance. Strabismus 06/10/2017 Overview (12/13/2020): Last Assessment & Plan: Glasses. 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 MRI's in past. Last Assessment & Plan: Well controlled on low dose Oxcarbazine. Autism spectrum disorder 10/06/2016 Overview (12/13/2020): Seen at [facility] in past, referred to Cedrick Barnes at [facility] to participate in studies, gave toileting and behavior help Last Assessment & Plan: Homeschooling and doing a lot of life skill work with support of web sites that mom has found useful. Alcohol-related neurodevelopmental disorder 05/10 Overview (12/13/2020): Last Assessment & Plan: Doing well with homeschooling with focus on lifeskills teaching. Not currently receiving IEP services. History of tethered spinal cord 06/06/2016 Overview (12/13/2020): Last Assessment & Plan: Follow up with Dr Briones as needed, looks like has been formally discharged. Hyperprolactinemia 06/06/2016 Overview (12/13/2020): Elevated prolactin on Risperdal 2014, seen by Endocrinology, recheck prolactin at some point Normal prolactin 06/2020 Last Assessment & Plan: In the past, on Risperdal at the time. Recheck with the labs. Family History * Patient is adopted Medical History Relation Name Comments Alcohol abuse Father Mental retardation Father not clear if this is a formal diagnosis Mental retardation Mother Relation Name Status Comments Father Mother Social History Tobacco Use Types Packs/Day Years Used Date Smoking Tobacco: Never Passive Smoke Exposure: Yes Tobacco Cessation:Counseling Given: Not Answered Alcohol Use Standard Drinks/Week Comments Not Asked 0 (1 standard drink = 0.6 oz pur e alcohol) Sex and Gender Information Value Date Recorded Sex Assigned at Not on file Legal Sex Male 8:37 AM EDT Gender Identity Not on file Sexual Orientation Not on file Last Filed Vital Signs Vital Sign Reading Time Taken Comments Blood Pressure 117/73 11/02/2024 9:04 AM EST Pulse 83 10/13/2023 10:53 AM EST Temperature - - Respiratory Rate 20 09/26/2016 2:07 PM EST Oxygen Saturation 98% 01/22/2021 11:54 AM EDT Inhaled Oxygen Concentration - - Weight 68.2 kg (150 lb 5.7 oz) 11/02/2024 9:04 A M EST Height 162.5 cm (5' 3.98 ) 11/02/2024 9:04 AM ES T Body Mass Index 25.83 11/02/2024 9:04 AM EST Plan of Treatment Health Maintenance Due Date Last Done Comments DTaP/TDAP/TD VACCINES (1 - Tdap) 2010 ADOLESCENT HIV SCREENING 2016 COVID-19 Vaccine (2 - 2024-2 6 season) 2025 09/07/2021 INFLUENZA (#1) 2025 NIRSEVIMAB VACCINES UNDER 8 MONTHS Aged Out No longer eligible b ased on patient's age to complete this topic [place] [address] [address] [address] PLAN Care Teams Alemite Operator Relationship Specialty Start Date End Date Nicol Gordillo MD [address] [place] [id number] PCP - General 05/22/16
--- OUTSIDE RECORDS SUMMARY | 2025-08-08 14:54 | XMS_ITS | Encounter Summary ---
Author Organization [facility] Address [address] [place] [address] Care Team Providers Care Barrel Header Name Role Phone Nicol Gordillo MD Primary Care Provider [phone] Reason for Visit * Reason Comments Medication Refill Encounter Details Date Type Department Care Team ([facility] st Contact Info) Description 09/22/2022 Refill [facility] Gastroenterology, [place] [address] [place] [address] Ara Jordan MD [address] [place] [id number] Slow transit constipation Social History Tobacco Use [...] encounter Miscellaneous Notes * Telephone Encounter - Kelly Brown RN - 09/22/2022 2:30 PM EST Last appt: 04/10/22 Next appt: 10/13/22 Weight: 65.9 kg Allergies: reviewed Current dosage: Miralax 2 capful daily documented in this encounter Plan of Treatment Not on file documented as of this encounter Visit Diagnoses Diagnosis Slow transit constipation documented in this encounter Care Teams Barrel Header Relationship Specialty Start Date End Date Nicol Gordillo MD [address] [place] [address] PCP - General 05/22/16 documented as of this encounter
--- OUTSIDE RECORDS SUMMARY | 2025-08-08 14:54 | XMS_ITS | Encounter Summary ---
Author Organization [facility] Address [address] [place] [address] Care Team Providers Care Front Desk Receptionist Name Role Phone Nicol Gordillo MD Primary Care Provider Reason for Visit * Reason Comments Medication Refill Encounter Details Date Type Department Care Team ([facility] st Contact Info) Description 11/25/2022 Refill [facility] Ophthalmology, [address] Floor, [address] [place] [phone] Berenice Barba MD [address] [place] [address] [address] [place] [phone] Glaucoma suspect of both eyes Social History [...] Telephone Encounter - Berenice Barba MD - 11/26/2022 8:55 AM EDT I have not seen this patient for 1.5 years and they do not have an appointment with me. documented in this encounter Plan of Treatment Not on file documented as of this encounter Visit Diagnoses Diagnosis Glaucoma suspect of both eyes Unspecified preglaucoma documented in this encounter Care Teams Front Desk Receptionist Relationship Specialty Start Date End Date Nicol Gordillo MD [address] [place] [id number] PCP - General 05/22/16 documented as of this encounter
--- OUTSIDE RECORDS SUMMARY | 2025-08-08 14:54 | XMS_ITS | Encounter Summary ---
[place] [address] Care Team Providers Care Casino Runner Name Role Phone Nicol Gordillo MD Primary Care Provider [phone] Reason for Visit * Reason Comments Medication Refill Encounter Details Date Type Department Care Team ([facility] st Contact Info) Description 04/25/2021 Refill [facility] Gastroenterology[address] [phone] Ara Jordan MD [address] [place] [phone] Slow transit constipation Social History Tobacco Use [...] encounter Miscellaneous Notes * Telephone Encounter - Mary Lou Grimes RN - 04/25/2021 8:49 AM EDT Last appt: 01/22/21 Next appt: 05/20/21 Weight:63.7kg Allergies: reviewed Dose: Patient Instructions 1. Miralax 2 capful daily documented in this encounter Plan of Treatment Not on file documented as of this encounter Visit Diagnoses Diagnosis Slow transit constipation documented in this encounter Care Teams Casino Runner Relationship Specialty Start Date End Date Nicol Gordillo MD [address] [place] [address] PCP - General 05/22/16 documented as of this encounter
--- OUTSIDE RECORDS SUMMARY | 2025-08-08 14:54 | XMS_ITS | Encounter Summary ---
Author Organization [facility] Address [address] [place] [address] Care Team Providers Care Renewable Energy Technician Name Role Phone Nicol Gordillo MD Primary Care Provider [phone] Reason for Referral * Consultation (Routine) - Closed Specialty Diagnoses / Procedures Referred By Contac t Referred To Contact Neurology Diagnoses Localization-related (focal) (partial) symptomatic epilepsy and epileptic syndromes with simple partial seizures, not intractable, without status epilepticus Daxa Guadalupe MD [address] [place] [address] Phone: tel: fax: Referral ID Status Reason Start Date Expiration Date V isits Requested Visits Authorized [id number] Closed Specialty Services Required 02/11/2023 08/10/2023 1 1 Reason for Visit * Reason Comments Medication Refill Encounter Details Date Type Department Care Team (Late st Contact Info) Description 01/27/2023 Refill [facility] Neurology, [place] [address] [place] [address] Daxa Guadalupe MD [address] [place] [address] Localization-related (focal) (partial) symptomatic epilepsy and epileptic [...] encounter Miscellaneous Notes * Telephone Encounter - Modseta Redmond MA - 02/12/2023 12:45 PM EDT Delores from [facility] called earlier this AM on the dr line stating someone left a message yesterday inquiring their fax number. Per noted below, James needs referral and supporting documents sent over. Externally faxed the above with confirmation as of today at 12:15 pm. * Telephone Encounter - Stephani Ryan MA - 02/12/2023 9:03 AM EDT Called number listed below was unable to reach anyone I LVM for family * Telephone Encounter - Daxa Dominguez MD - 02/11/2023 3:55 PM EDT Referral printed * Telephone Encounter - Kenzie Rendon RN - 02/11/2023 3:22 PM EDT Dad left a message on the nurse line noting he found a neurologist that will assume Nasir's care. They need a referral The referral can be sent to : [facility] Dr Aldo Dominguez can you place referral? MA;'s can then get fax to send to * Telephone Encounter - Daxa Dominguez MD - 02/11/2023 2:56 PM EDT Last refill sent * Telephone Encounter - Emily Huitron RN - 02/11/2023 2:07 PM EDT Spoke with father. Father was honest and stated he had not looked for an adult neurologist recently. He mentioned the last time he searched for adult neurologist in [place], he saw there was not a lot of them. He mentioned that he will call the office back within a week to let us know where he would like the referral sent to. He stated he was sorry. He mentions he has enough of the 600mg tablets but needs more of the 300mg tablets. Dr. Aldo Dominguez, please advise if you will give the patient more 300mg tablets. * Telephone Encounter - Mouna Prado - 02/11/2023 9:16 AM EDT FYI: Father returned call - I routed him back to nursing line. Father is requesting a callback at 2:00PM today if possible. * Telephone Encounter - Emily Huitron RN - 02/10/2023 2:38 PM EDT Father called back. Called him back. He was unavailable. Left detailed message. * Telephone Encounter - Mari Ceja RN - 02/03/2023 3:41 PM EDT Received a message on the nursing line from Nasir's Dad who was calling for a PA through [employer] for Oxtellar 600 mg +300 mg tablets. Called [facility] in [place]. The Oxtellar 600 mg tablets and 300 mg tablets were picked up on 01/19 and 01/14. Both were filled for a 30 day supply. There is no PHI on file for parents or updated guardianship paperwork. Called number Dad called from, left a message. * Telephone Encounter - Stephani Ryan MA - 01/28/2023 9:00 AM EDT LVM for family * Telephone Encounter - Kenzie Rendon RN - 01/27/2023 5:01 PM EDT MA's please call James's family and discuss adult neurologist as Dr Aldo Dominguez notes below * Telephone Encounter - Daxa Dominguez MD - 01/27/2023 11:56 AM EDT James is 17yo, and lives in [place]. He will need to see an adult neurologist going forward. He needs to establish care elsewhere. I will give a 1 month supply. If he cannot get an appointment with an adult provider in the next month, I might be willing to give refills until that visit, but the family should know that once that visit date happens I will no longer be providing refills. * Telephone Encounter - Mikaela Solano RN - 01/27/2023 11:10 AM EDT Refill request received for Oxtellar XR 300 mg. Dose verified with last office visit on 05/25/2020 (taking 1500 mg daily- two 600 mg tabs and one 300 mg tab). ?? There is no follow up on file. There were scheduled follow up visits on 09/12/22, 09/29/22 and 10/03/22but all were no shows. ?? James also has not had any labs completed since 2019. Dr. Aldo Dominguez- Please advise on refill request. documented in this encounter Plan of Treatment Scheduled Referrals Name Type Priority Associated Diagnoses Orde r Schedule Ambulatory referral to Neurology Outpatient Referral Routine Localization-related (focal) (partial) symptomatic epilepsy and epileptic syndromes with simple partial seizures, not intractable, without status epilepticus Ordered: 02/11/2023 documented as of this encounter Visit Diagnoses Diagnosis Localization-related (focal) (partial) symptomatic epilepsy and epileptic syndromes with simple partial seizures, not intractable, without status epilepticus documented in this encounter Care Teams Renewable Energy Technician Relationship Specialty Start Date End Date Nicol Gordillo MD [address] [place] [address] PCP - General 05/22/16 documented as of this encounter
--- OUTSIDE RECORDS SUMMARY | 2025-08-08 14:54 | XMS_ITS | Clinical Summary ---
Author Organization [facility] Address [address] [place] [address] Phone Care Team Providers Care Plate Glass Installer Helper Name Role Phone Unavailable Primary Care Provider Unavailabl e Allergies Active Allergy Reactions Criticality Noted Date Comments Levetiracetam Medications OXcarbazepine 600 MG tablet Take 600 mg by mouth 2 (two) times a day. Active Cholecalciferol 25 MCG (1000 UT) tablet Take by mouth daily. Active Multiple Vitamin (MULTIVITAMIN) capsule Take 1 capsule by mouth daily. Active latanoprost 0.005 % ophthalmic solution Administer 1 drop into affected eye(s) daily. 0 Active Oxtellar XR 300 MG tablet sustained-release 24 hour TAKE 1 TABLET BY MOUTH EVERY DAY ALONG WITH 600MG TABLETS 0 Active Oxtellar XR 600 MG tablet sustained-release 24 hour TAKE 2 TABLETS BY MOUTH EVERY DAY ALONG WITH 300MG TABLETS 0 Active polyethylene glycol 17 GM/SCOOP powderIndications :Slow transit constipation STIR AND DISSOLVE POWDER INTO 8 OUNCES OF BEVERAGE AND THEN DRINK once or twice a day to prevent constipation. May give extra doses as needed 850 g 11 1 Active Multiple Vitamins-Minerals (ZINC PO) Take by mouth. Activ e clindamycin-benzo yl peroxide 1-5% gelIndications:En counter for well adult exam with abnormal findings Apply once daily 50 g 11 3 Active Active Problems Problem Noted Date Diagnosed Date Right knee sprain 07/27/2023 Overview (09/09/2023): [facility] 07/25/23, moderate effusion right knee Seen at [facility] 09/02/2023, checking MRI Assessment & Plan (08/03/2023 12:31 PM EST): Resolved now. Has one more f/u visit with Orthopedics. Mild intellectual disability 07/30/2022 Assessment & Plan (08/03/2023 12:28 PM EST): Mom wants the twins to see Dr Castellanos again since it has been several years. DDS is helping with process of guardianship as well as helping him access a work training program. Assessment & Plan (07/30/2022 3:12 PM EST): Will see if our Care Coordination RN can reach out to parents to help with Guardianship application and DDS services. Myopia with astigmatism 07/26/2021 Assessment & Plan (08/03/2023 12:29 PM EST): Switched to Ophtho locally. Assessment & Plan (07/30/2022 3:11 PM EST): Ophtho at [facility] Allergic rhinitis 04/01/2021 Overview (04/01/2021): Flonase Family history of premature coronary heart disea se 06/27/2020 Overview (06/29/2020): Normal lipids 06/2020 Assessment & Plan (06/27/2020 3:00 PM EDT): Since bio mom of a heart attack at age 45 will check labs. 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 Assessment & Plan (07/30/2022 3:11 PM EST): Ophtho at [facility] Slow transit constipation 05/28/2020 Overview (01/23/2021): Saw Dr Jordan at [facility] 06/2020, to do Miralax cleanout followed by 2 capfuls Miralax and ExLax daily. Celiac and thyroid screens normal. 08/2020 continue Miralax and ExLax 01/2021 Miralax 2 capfuls daily, 1/2 square ExLax BID f/u 3-4 months Assessment & Plan (08/03/2023 12:31 PM EST): On Miralax and ExLax via Dr Jordan at [facility]. Assessment & Plan (07/30/2022 3:10 PM EST): Followed by GI at [facility] Assessment & Plan (07/03/2021 4:50 PM EDT): Glad to hear this is under good control with Miralax and ExLax by GI at [facility]. Assessment & Plan (06/27/2020 2:14 PM EDT): Being treated by Dr Jordan at [facility] with Miralax and ExLax Assessment & Plan (05/30/2020 5:48 PM EDT): Sounds like he has longstanding constipation which has worsened recently. Thankfully the prune juice is now working for him. Would reserve ExLax use for only if needed, continue liberal prune juice. Limit milk (he is a big milk drinker) to just one or two servings daily. Increase fiber in diet (brown rice; whole wheat breads, pastas, cereals; lots of veggies and fruits). Since mom reports the Miralax did not help at a decent dose, will stop this. If the above is not adequate to achieve a daily soft stool, will start Lactulose. Toilet sit daily after dinner. Will schedule appt with GI. Since Dr Guy has retired and all his other specialty care is at [facility], will schedule there. Mom to call if has not heard by the end of the week with an appt. To call right away for abdominal pain, vomiting, or other concerns. 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 Assessment & Plan (07/30/2022 3:09 PM EST): F/u with Ophtho at [facility] as planned. Assessment & Plan (07/03/2021 4:49 PM EDT): On drops by Ophtho at [facility]. Assessment & Plan (06/27/2020 3:00 PM EDT): Eyedrops, Ophtho at [facility]. Speech delay 06/11/2018 Overview (06/11/2018): With regression noted by Dr Castellanos 2014 since starting homeschooling, to have speech tx. [facility] eval shows mod-severe delayed expressive, receptive, pragmatic speech. Normal hearing at [facility] 06/22 Acne 06/10/2017 Assessment & Plan (08/03/2023 12:24 PM EST): Topicals working well, refilled. Assessment & Plan (07/30/2022 2:13 PM EST): Refilled topicals as requested. Assessment & Plan (06/27/2020 2:55 PM EDT): Doing well on topicals. Assessment & Plan (06/17/2019 12:24 PM EDT): Pretty extensive especially on back despite use of topicals. Will treat with oral Doxycycline for two months then recheck. Refilled the Benzoyl peroxide wash which he likes. Goal is to get him back on topicals once we achieve good control with systemic antibiotic. Autism spectrum disorder 06/10/2017 Overview (06/11/2018): Seen at [facility] in past, referred to Cedrick Barnes at [facility] to participate in studies, gave toileting and behavior help Assessment & Plan (08/03/2023 12:27 PM EST): Mom wants the twins to see Dr Castellanos again since it has been several years. DDS is helping with process of guardianship as well as helping him access a work training program. Assessment & Plan (07/30/2022 3:07 PM EST): Does not seem like Guardianship has been achieved. Mom's concern is he has lost his DDS support. Will ask our [facility] RN to reach out to parents. Assessment & Plan (07/03/2021 4:49 PM EDT): Family is pursuing Guardianship with the support of DDS. They will let us know if need additional support/guidance. Assessment & Plan (06/17/2019 12:22 PM EDT): Homeschooling and doing a lot of life skill work with support of web sites that mom has found useful. 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 Currently, good control with Trileptal Assessment & Plan (08/03/2023 12:28 PM EST): Recently switched to Adult Neurology at [facility], continues on Oxcarbazine which works very well for him. Assessment & Plan (07/30/2022 3:07 PM EST): Has been very stable on Oxcarbazine. F/u with Neurology at [facility] as is planned. Assessment & Plan (07/03/2021 4:47 PM EDT): Very well controlled on low dose Oxcarbazine, followed by Neuro at [facility]. Assessment & Plan (06/27/2020 2:56 PM EDT): Has done very well on low dose Oxcarbazine, follow up with Neuro at [facility]. Assessment & Plan (06/17/2019 10:14 AM EDT): Doing well on Oxcarbazine, will see Dr Aldo Dominguez next month in followup. Assessment & Plan (06/11/2018 12:57 PM EDT): Good control on Trileptal Raynaud's syndrome without gangrene 06/10/2017 Overview (06/11/2018): Labs including AMBROSE normal Assessment & Plan (06/17/2019 12:09 PM EDT): Mom is concerned about his purple feet. They are not painful. Reassurance. Strabismus 06/10/2017 Assessment & Plan (08/03/2023 12:32 PM EST): Switched to local Ophtho. Assessment & Plan (07/30/2022 3:08 PM EST): F/u with Ophtho at [facility] as planned. Assessment & Plan (07/03/2021 4:50 PM EDT): Sees Ophtho at [facility]. Assessment & Plan (06/27/2020 2:58 PM EDT): Glasses. Assessment & Plan (06/17/2019 10:19 AM EDT): Will get them in with Pediatric Ophthalmology at [facility] where their other specialists are. 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 Asthma 06/10/2017 Assessment & Plan (08/03/2023 12:27 PM EST): Hasn't needed his Albuterol in years. Mom will make sure the pharmacy removes automatic refill on his Albuterol inhaler. Advised Pneumovax due to hx asthma, written down so they can ask for it at the pharmacy as we don't have private stock here. Assessment & Plan (07/30/2022 3:09 PM EST): Has seen Dr Solis in the past, off preventers and doing well. Assessment & Plan (07/03/2021 4:46 PM EDT): Has seen Dr Solis in the past. Currently doing well, off his preventer. Assessment & Plan (06/27/2020 2:59 PM EDT): Mom says so far doing well off his preventers, usually starts them in Fall. She would like to hold off for now. If needing Albuterol on a regular basis or coughing with exercise, mom to call Dr Solis and consider restarting preventers. Assessment & Plan (06/17/2019 10:11 AM EDT): Mom says doing well off preventers over a year, rare cough. Not needing Albuterol. Saw Dr Solis this year who felt was in poor control but mom says was having an exacerbation at the time. Wants refill to have in case. Assessment & Plan (06/11/2018 12:56 PM EDT): Off preventers, per mom doing well but per Dr Solis's last note is moderately persistent and exposed to tobacco smoke. Follow. 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 DDS is helping with process of guardianship as well as helping him access a work training program. Assessment & Plan (07/30/2022 2:13 PM EST): Has seen Dr Castellanos in the past. Assessment & Plan (06/27/2020 2:56 PM EDT): Doing well with homeschooling with focus on lifeskills teaching. Not currently receiving IEP services. Assessment & Plan (06/17/2019 12:22 PM EDT): Has been followed by Dr Castellanos in the past. Assessment & Plan (06/11/2018 12:55 PM EDT): Sees Dr Castellanos periodically. 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 Assessment & Plan (07/30/2022 3:07 PM EST): Saw Dr Briones in the past, is at adult height now. Assessment & Plan (07/03/2021 4:49 PM EDT): No longer follows with Dr Briones. Assessment & Plan (06/27/2020 2:57 PM EDT): Follow up with Dr Briones as needed, looks like has been formally discharged. Assessment & Plan (06/17/2019 12:17 PM EDT): Mom says has been discharged from f/u with Dr Briones. Did grow 1/2 inch this year. Not having bowel, bladder, or lower extremity symptoms. Assessment & Plan (06/11/2018 1:01 PM EDT): F/u with Dr Briones Resolved Problems Problem Noted Date Diagnosed Date Resolved Date Personal history of COVID-19 07/30/2022 08/03/2023 Overview (07/30/2022): 09/2021 asymptomatic alcohol spectrum disorder 09/21/2019 07/30/2022 Assessment & Plan (07/30/2022 3:10 PM EST): Has seen Dr Castellanos. Sneezing 06/17/2019 06/27/2020 Assessment & Plan (06/17/2019 12:31 PM EDT): Mother would like the twins to see Allergy since they frequently sneeze. Number given. Discussed they are exposed to multiple pets at home and cigarette smoke. Foster care (status) 06/11/2018 022 Assessment & Plan (07/03/2021 4:48 PM EDT): Family is pursuing Guardianship with the support of DDS. They will let us know if need additional support/guidance. Assessment & Plan (06/17/2019 12:19 PM EDT): Mom actually has full guardianship of him and his sister. Plans for adoption after 16 birthday when they will pusue adult guardianship. 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 MRI's in past. Assessment & Plan (06/27/2020 2:59 PM EDT): Well controlled on low dose Oxcarbazine. Assessment & Plan (06/17/2019 12:21 PM EDT): Neurologist Dr Aldo Dominguez at [facility] felt not having seizures, but is staying on Oxcarbazine for behavioral management. Has f/u with her next month. Sounds like he is still on a fair dose of this, although in her last note she wanted to wean it to a lower dose. Assessment & Plan (06/11/2018 12:57 PM EDT): 10/[address] Aldo Dominguez at [facility] who feels not having seizures, to wean the Trileptal down to a lower dose, continue to use it for behavior control though Hyperprolactinemia 06/06/2016 1 Overview (06/29/2020): Elevated prolactin on Risperdal 2014, seen by Endocrinology, recheck prolactin at some point Normal prolactin 06/2020 Assessment & Plan (06/27/2020 2:57 PM EDT): In the past, on Risperdal at the time. Recheck with the labs. Assessment & Plan (06/17/2019 12:17 PM EDT): Elevated prolactin on Risperdal in the past, will recheck. Pelviectasis of kidney 06/06/201607/06 Overview (07/06/2020): Due for repeat renal and bladder US per final Pedi Surgery note 2014 Normal renal and bladder US 06/2020 Assessment & Plan (06/27/2020 2:58 PM EDT): Was stable at last Pedi Surgery follow up and no f/u needed, but did want repeat ultrasound. Will schedule. Assessment & Plan (06/17/2019 12:14 PM EDT): Mom says stable at last f/u with Pediatric Surgery and no f/u there is needed. Reviewed last note from 2014, bilateral pelviectasis stable, no f/u needed but wanted to recheck renal and bladder US in two years. Will find out if this was done. Assessment & Plan (06/11/2018 1:00 PM EDT): Stable at last f/u with Pedi Surgery, VCUG negative Immunizations Immunization Administration Dates Next Due COVID-19 Pfizer, monovalent, 12+ years 2 DTaP 06/02/2008, 5,2003,09/27,2003 Hep A, ped/adol 12/10/2017,06/10/2017 Hep B 01/25/2004,2003 Hep B, ped/adol 01/25/2004,2003,2003 HiB 11/18/2004, 4,2003,07/26 Hib (PRP-T) 11/18/2004, 4,2003,07/26 IPV 06/02/2008, 5,2003,09/27,2003 Influenza 07/01/2007 Influenza, injectable, quadrivalent 05/10,05/24/2012,07/26/2010,06/02 Influenza, injectable, quadr ivalent, preservative free 07/30/2022,07/03/2021,05/28/2020,06/17,06/11/2018,06/10/2017,06/04/2015 ,06/02/2014,06/01/2013,04/22/2011,05/09 Influenza, injectable, trivalent 06/06/2016,07/08,07/01/2004 Influenza, injectable, triva lent, preservative free 07/17/2005,07/01/2004 MMR 08/25/2007,11/18/2004 Meningococcal Conj (Menactra) MCV4P 06/17/2019,0 06/02/2014 Pneumococcal Conjugate 11/18/2004,2003,2003,09/27 Tdap 06/02/2014 Varicella 08/25/2007,07/01/2005,07/01/2004 Family History Medical History Relation Name Comments Heart attack Mother Relation Name Status Comments Father Alive seizures, alcoh ol abuse diagnosed with NONPSYCHOT BRAIN SYN NOS Maternal Grandfather Alive Maternal Grandmother Alive Mother low IQ diagnose d with NONPSYCHOT BRAIN SYN NOS Other Alive Siblings: twin sister dylan, with pdd, expressive language delays, seizures diagnosed with NONPSYCHOT BRAIN SYN NOS Paternal Grandfather Alive Paternal Grandmother Alive Sister Dylan Santos Alive tethered cord , alcohol related neurodevelopmental disorder, genetic anomaly Social History Tobacco Use Types Packs/Day Years Used Date Smoking Tobacco: Never Assessed Smokeless Tobacco: Never Tobacco Cessation:Counseling Given: Not Answered Alcohol Use Standard Drinks/Week Comments Never 0 (1 standard drink = 0.6 oz pur e alcohol) Hunger/Food Answer Date Recorded In the last 12 months, did y ou or your family ever eat less than you felt you should because there wasn't enough money for food? No 08/03/2023 Stable Housing Answer Date Recorded Are you worried that in the next 2 months you may not have stable housing? No 08/03/2023 Transportation Concerns Answer Date Rec orded In the last 12 months, have you or your family ever had to go without healthcare because you didn't have a way to get there? No 08/03/2023 Hazards in Home Answer Date Recorded Think about the place you li ve. Do you have problems with any of the following? Pests (mice or roaches), mold, no/not working smoke detectors, water leaks, no window guards. No 2022 Financing Utilities Answer Date Recorde d In the last 12 months, has t he [employer], gas, oil, or water [employer] threatened to shut off your services in your home? No 08/03/2023 Safety at Home Answer Date Recorded Are you or your family worried about feeling saf e in your home? No 08/03/2023 Outside Support Answer Date Recorded Do you feel that you need mo re support from other people or programs to help you care for yourself or your family? No 08/03/2023 Understanding Health Concerns Answer Da te Recorded Do you need help understandi ng your or your child's healthcare needs (diagnosis, medications, plan, etc.)? No 08/03/2023 Financing Health Concerns Answer Date R ecorded In the last 12 months, was t here a time when your child needed to see a doctor or get medications or supplies but could not because of cost? No 08/03/2023 Missing School or Work Answer Date Patrick rded Did you or your child miss s chool or work because of a health problem that could have been avoided? No 08/03/2023 Sex and Gender Information Value Date Recorded Sex Assigned at Male 06/27/2020 2:26 PM EDT Legal Sex Male 6:25 PM EDT Gender Identity Male 06/27/2020 2:26 PM EDT Sexual Orientation Straight 06/27/2020 2: 26 PM EDT Last Filed Vital Signs Vital Sign Reading Time Taken Comments Blood Pressure 120/82 08/03/2023 9:23 AM EST Pulse 88 12/20/2016 12:00 AM EDT Temperature 36.7 C (98 F) 07/03/2021 2:54 PM EDT Respiratory Rate - - Oxygen Saturation 100% 12/20/2016 12: 00 AM EDT Inhaled Oxygen Concentration - - Weight 64.8 kg (142 lb 12.8 oz) 08/03/2023 9:23 AM EST Height 163.8 cm (5' 4.5 ) 08/03/2023 9:23 AM EST Body Mass Index 24.13 08/03/2023 9:23 AM EST Plan of Treatment Health Maintenance Due Date Last Done Comments HPV Vaccines (1 - Male 3-dos e series) 2018 Men B Vaccine (1 of 2 - Standard) 2019 DTaP,Tdap,and Td Vaccines (7 - Td or Tdap) 06/02/2024 06/02/2014, 06/02/2008, 11/18/2004, Additional history exists Influenza Vaccines (#1) 2025 06/09/20 24, 06/09/2023, 07/30/2022, Additional history exists COVID-19 Vaccine (5 - 2024-2 6 season) 2025 07/07/2023, 09/07/2021, 02/06/2021, Additional history exists Hepatitis B Vaccines Completed 01/25/2004, 01/25/2004, 2003, Additional history exists HIB Vaccines Completed 11/18/2004, 11/05, 2003, Additional history exists Pneumococcal Vaccine Completed 11/18/2004, 07/01/2004, 2003, Additional history exists MMR Vaccines Completed 08/25/2007, 11/18/2004 Varicella Vaccines Completed 08/25/2007, 1 , 07/01/2004 IPV Vaccines Completed 06/02/2008, 11/05, 2003, Additional history exists Hepatitis A Vaccines Completed 12/10/2017, 06/10/20 17 Meningococcal Vaccine Completed 06/17/2019, 014 Insurance [facility] Address[place] [address] [address] [place] [address] [facility] NON PCC [facility] NON PCC [facility] Address: [address] [address] [place] [address]
--- OUTSIDE RECORDS SUMMARY | 2025-08-08 14:54 | XMS_ITS | Encounter Summary ---
Author Organization [facility] Address [address] [place] [id number] Care Team Providers Care Steeple Jack Name Role Phone Nicol Gordillo MD Primary Care Provider [phone] Reason for Visit * Reason Comments Medication Refill Encounter Details Date Type Department Care Team ([facility] st Contact Info) Description 07/25/2022 Refill [facility], [place] [address] [place] [address] Ara Jordan MD [address] [place] [phone] Slow transit constipation Social History Tobacco Use [...] encounter Miscellaneous Notes * Telephone Encounter - Vivian Malone RN - 07/25/2022 10:47 AM EST Last seen 04-10-22 Dose correct Next appt 10-13-22 documented in this encounter Plan of Treatment Not on file documented as of this encounter Visit Diagnoses Diagnosis Slow transit constipation documented in this encounter Care Teams Steeple Jack Relationship Specialty Start Date End Date Nicol Gordillo MD [address] [place] [id number] PCP - General 05/22/16 documented as of this encounter
--- OUTSIDE RECORDS SUMMARY | 2025-08-08 14:54 | XMS_ITS | Encounter Summary ---
Author Organization [facility] Address [address] [place] [id number] Phone Care Team Providers Care Terrestrial Ecologist Name Role Phone Nicol Gordillo MD Primary Care Provider [phone] Reason for Visit * Reason Comments Med Refill Encounter Details Date Type Department Care Team (Late st Contact Info) Description 03/02/2021 [facility]ill [facility] [address] [address] Holli Betancourt NP [address] [place] [id number] Asthma, unspecified asthma severity, unspecified whether complicated, [...] encounter Miscellaneous Notes * Telephone Encounter - Holli Betancourt NP - 03/05/2021 8:50 AM EDT Pt already picked up RF * Telephone Encounter - Holli Betancourt NP - 03/05/2021 8:47 AM EDT Spoke with Mom and they picked up albuterol MDI a month ago and does not need the pharmacy request for RF. To deny RF documented in this encounter Plan of Treatment Not on file documented as of this encounter Visit Diagnoses Diagnosis Asthma, unspecified asthma severity, unspecified whether complicated, unspecified whether persistent documented in this encounter Care Teams Terrestrial Ecologist Relationship Specialty Start Date End Date Nicol Gordillo MD [address] [place] [address] PCP - General 01/13/18 06/02/24 documented as of this encounter
--- OUTSIDE RECORDS SUMMARY | 2025-08-08 14:54 | XMS_ITS | Encounter Summary ---
Author Organization [facility] Address [address] [place] [address] Care Team Providers Care Skein Mercerizing Machine Operator Name Role Phone Nicol Gordillo MD Primary Care Provider [phone] Reason for Visit * Reason Comments Medication Refill Encounter Details Date Type Department Care Team ([facility] st Contact Info) Description 07/25/2022 Refill [facility] Ophthalmology, [address], [address] [place] [address] Berenice Barba MD [address] [place] [address] [address] [place] [address] Glaucoma suspect of both eyes Social History [...] preglaucoma documented in this encounter Care Teams Skein Mercerizing Machine Operator Relationship Specialty Start Date End Date Nicol Gordillo MD [address] [place] [address] PCP - General 05/22/16 documented as of this encounter
--- OUTSIDE RECORDS SUMMARY | 2025-08-08 14:54 | XMS_ITS | Encounter Summary ---
Author Organization [facility] Address [address] [place] [address] Care Team Providers Care Spoke Maker Name Role Phone Nicol Gordillo MD Primary Care Provider [phone] Reason for Visit * Reason Comments Medication Refill Encounter Details Date Type Department Care Team ([facility] st Contact Info) Description 10/13/2022 Refill [facility] Ophthalmology, [address], [address] [place] [address] Berenice Barba MD [address] [place] [address] [address] [place] [address] Glaucoma suspect of both eyes Social History [...] preglaucoma documented in this encounter Care Teams Spoke Maker Relationship Specialty Start Date End Date Nicol Gordillo MD [address] [place] [address] PCP - General 05/22/16 documented as of this encounter
--- OUTSIDE RECORDS SUMMARY | 2025-08-08 14:54 | XMS_ITS | Encounter Summary ---
Author Organization [facility] Address [address] [place] [address] Phone Care Team Providers Care Treasury Agent Name Role Phone Nicol Gordillo MD Primary Care Provider [phone] Reason for Visit * Reason Comments Med Refill Encounter Details Date Type Department Care Team (Late st Contact Info) Description 09/21/2021 [facility]ill [facility] [address] [address] Candis Leonard MD [address] [place] [address] Asthma, unspecified asthma severity, unspecified whether complicated, unspecified whether persistent Social History Tobacco Use Types Packs/Day Years Used Date Smoking Tobacco: Never Assessed Hunger/Food Answer Date Recorded In the last 12 months, did y ou or your family ever eat less than you felt you should because there wasn't enough money for food? No 07/03/2021 Stable Housing Answer Date Recorded Are you worried that in the next 2 months you may not have stable housing? No 07/03/2021 Transportation Concerns Answer Date Rec orded In the last 12 months, have you or your family ever had to go without healthcare because you didn't have a way to get there? No 07/03/2021 Hazards in Home Answer Date Recorded Think about the place you li ve. Do you have problems with any of the following? Pests (mice or roaches), mold, no/not working smoke detectors, water leaks, no window guards. No 2020 Financing Utilities Answer Date Recorde d In the last 12 months, has t he electric, gas, oil, or water company threatened to shut off your services in your home? No 07/03/2021 Safety at Home Answer Date Recorded Are you or your family worried about feeling saf e in your home? No 07/03/2021 Outside Support Answer Date Recorded Do you feel that you need mo re support from other people or programs to help you care for yourself or your family? No 07/03/2021 Understanding Health Concerns Answer Da te Recorded Do you need help understandi ng your or your child's healthcare needs (diagnosis, medications, plan, etc.)? No 07/03/2021 Financing Health Concerns Answer Date R ecorded In the last 12 months, was t here a time when your child needed to see a doctor or get medications or supplies but could not because of cost? No 07/03/2021 Missing School or Work Answer Date Patrick rded Did you or your child miss s chool or work because of a health problem that could have been avoided? No 07/03/2021 Sex and Gender Information Value Date Recorded Sex Assigned at Male 06/27/2020 2:26 PM EDT Legal Sex Male 6:25 PM EDT Gender Identity Male 06/27/2020 2:26 PM EDT Sexual Orientation Straight 06/27/2020 2: 26 PM EDT documented as of this encounter Plan of Treatment Not on file documented as of this encounter Visit Diagnoses Diagnosis Asthma, unspecified asthma severity, unspecified whether complicated, unspecified whether persistent documented in this encounter Care Teams Treasury Agent Relationship Specialty Start Date End Date Nicol Gordillo MD [address] [facility] [place] [address] PCP - General 01/13/18 06/02/24 documented as of this encounter
--- OUTSIDE RECORDS SUMMARY | 2025-08-08 14:54 | XMS_ITS | Encounter Summary ---
Author Organization [facility] Address [address] [place] [address] Care Team Providers Care Plastic Worker Name Role Phone Nicol Gordillo MD Primary Care Provider Reason for Visit * Reason Comments Medication Refill Encounter Details Date Type Department Care Team ([facility] st Contact Info) Description 07/23/2022 Refill [facility] [place] [address] [place] [address] Daxa Guadalupe MD [address] [place] [address] Focal epilepsy; Localization-related (focal) (partial) symptomatic epilepsy [...] Telephone Encounter - Siobhan Rogers RN - 07/24/2022 8:44 AM EST Oxtellar dosing verified with 01/22/22 refill encounter. Follow up visit scheduled for 09/12/22. 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
--- OUTSIDE RECORDS SUMMARY | 2025-08-08 14:54 | XMS_ITS | Encounter Summary ---
Author Organization [facility] Address [address] [place] [address] Care Team Providers Care Community Relations Police Lieutenant Name Role Phone Nicol Gordillo MD Primary Care Provider [phone] Reason for Visit * Reason Comments Medication Refill Encounter Details Date Type Department Care Team ([facility] st Contact Info) Description 11/27/2017 Refill [facility], [place] [address] [place] [address] Daxa Guadalupe MD [address] [place] [address] Focal epilepsy Social History Tobacco Use Types [...] Miscellaneous Notes * Telephone Encounter - Maura Shannon RN - 11/27/2017 8:55 AM EDT Spoke with mom regarding refill request. She confirmed that they are currently still using the 150 mg tablets. He is down to 1 tablet. They were going slow. Mom would like 1 more refill sent. So Nasir currently takes 600 mg AM/ 750 mg PM. Follow up scheduled for 03/23/18. Script edited to show updated instructions. * Telephone Encounter - Siobhan Rogers RN - 11/27/2017 7:16 AM EDT Per 10/27/17 office visit note, Nasir was weaning from the 150mg tablets and continuing the 600mg tablets which are ordered. Called mom to verify that Nasir does not need this refill but had to leave a message on her cell phone. No answer at home number. documented in this encounter Plan of Treatment Not on file documented as of this encounter Visit Diagnoses Diagnosis Focal epilepsy documented in this encounter Care Teams Community Relations Police Lieutenant Relationship Specialty Start Date End Date Nicol Gordillo MD [address] [place] [address] PCP - General 05/22/16 documented as of this encounter
--- OUTSIDE RECORDS SUMMARY | 2025-08-08 14:54 | XMS_ITS | Encounter Summary ---
Author Organization [facility] Address [address] [place] [address] Care Team Providers Care Gastroenterology Manager Name Role Phone Nicol Gordillo MD Primary Care Provider [phone] Reason for Visit * Reason Comments Medication Refill Encounter Details Date Type Department Care Team ([facility] st Contact Info) Description 10/13/2022 Refill [facility] Gastroenterology, [place] [address] [place] [address] Ara Jordan MD [address] [place] [address] Slow transit constipation Social History Tobacco Use [...] Telephone Encounter - Kelly Brown RN - 10/13/2022 9:48 AM EST Last appt: 04/10/22 Next appt: 10/13/22 Weight: 65.9 kg Allergies: reviewed Current dosage: Miralax 2 capful daily documented in this encounter Plan of Treatment Not on file documented as of this encounter Visit Diagnoses Diagnosis Slow transit constipation documented in this encounter Care Teams Gastroenterology Manager Relationship Specialty Start Date End Date Nicol Gordillo MD [address] [place] [address] PCP - General 05/22/16 documented as of this encounter
--- OUTSIDE RECORDS SUMMARY | 2025-08-08 14:54 | XMS_ITS | Clinical Summary ---
Author Organization [address] Address [address] [place] [address] Phone Care Team Providers Care Gas Inspector Name Role Phone Ross Segovia MD Primary Care Provider [phone] Allergies No known active allergies Medications OXcarbazepine (TRILEPTAL) 600 mg tablet Take 1 tablet (600 mg total) by mouth. Active Oxtellar XR 300 mg tablet extended release 24 hr PLEASE SEE ATTACHED FOR DETAILED DIRECTIONS Active latanoprost (XALATAN) 0.005 % ophthalmic solution INSTILL 1 DROP INTO BOTH EYES EVERY DAY AT NIGHT Active senna 8.6 mg tablet Take 2 tablets (17.2 mg total) by mouth. Active benzoyl peroxide 5 % gel Apply topically 2 (two) times a day. 30 g 5 Active clindamycin (CLEOCIN T) 1 % gel Apply topically 2 (two) times a day. 30 g 5 Active Active Problems Problem Noted Date Diagnosed Date Aggressive behavior 02/14/2025 Behavior demonstrating primitive rage 02/14/2025 Focal seizure ([facility] V24, [facility] V28) 025 Precocious puberty 02/14/2025 Seizure disorder ([facility] V24, [facility] V28) 02/05 Right knee sprain 07/27/2023 Overview (02/14/2025): [facility] 07/25/23, moderate effusion right knee Seen at [facility] 09/02/2023, checking MRI Mild intellectual disability 07/30/2022 Myopia with astigmatism 07/26/2021 Allergic rhinitis 04/01/2021 Overview (02/14/2025): Flonase 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 Celiac and thyroid screens normal. 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 [facility] eval shows mod-severe delayed expressive, receptive, pragmatic speech. Normal hearing at [facility] 06/22 Acne 06/10/2017 Overview (02/14/2025): Last Assessment & Plan: Doing well on topicals. Asthma 06/10/2017 Overview (02/14/2025): Last Assessment & Plan: Mom says so far doing well off his preventers, usually starts them in Fall. She would like to hold off for now. If needing Albuterol on a regular basis or coughing with exercise, mom to call Dr Solis and consider restarting preventers. 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 Currently, good control with Trileptal Last Assessment & Plan: Has done very well on low dose Oxcarbazine, follow up with Neuro at [facility]. Raynaud's syndrome without gangrene 06/10/2017 Overview (02/14/2025): Labs including AMBROSE normal Last Assessment & Plan: Mom is concerned about his purple feet. They are not painful. Reassurance. Strabismus 06/10/2017 Overview (02/14/2025): Last Assessment & Plan: Glasses. Autism spectrum disorder 10/06/2016 Overview (02/14/2025): Seen at [facility] in past, referred to Cedrick Barnes at [facility] to participate in studies, gave toileting and behavior help Last Assessment & Plan: Homeschooling and doing a lot of life skill work with support of web sites that mom has found useful. Focal epilepsy ([facility] V24, [facility] V28) 2016 Overview (02/14/2025): Staring spells treated by Dr Chopra despite 9 normal EEG's, / seeing Dr Aldo Dominguez at [facility] who feels not having seizures, to wean the Trileptal down to a lower dose, continue to use it for behavior control though. MRI's in past. Last Assessment & Plan: Well controlled on low dose Oxcarbazine. 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 Not currently receiving IEP services. Hyperprolactinemia ([facility] V24) 06/06/2016 Overview (02/14/2025): Elevated prolactin on Risperdal 2014, seen by Endocrinology, recheck prolactin at some point Normal prolactin 06/2020 Last Assessment & Plan: In the past, on Risperdal at the time. Recheck with the labs. Immunizations Immunization Administration Dates Next Due DTaP (Infanrix) 6wks to less than 7yo ,11/18/2004,2003,09/27,2003 Hep B, Unspecified 01/25/2004,2003 Hepatitis A Pediatric (Havri x; Vaqta) 12mo to less than 19yo 12/10/2017,06/10/2017 Hepatitis B Pediatric (Enger ix B; Recombivax HB) to less than 20 yo 2003 HiB 11/18/2004, 4,2003,07/26 IPV Inactivated polio (Ipol) 6wks and older 06/02/2008,11/18/2004,2003,09/27,2003 Influenza Quadrivalent, 0.5m l, preservative free (Fluarix; FluLaval; Fluzone) ages 6mo and older (Afluria) 3yo and older 07/30/2022,07/03/2021,05/28/2020,06/17,06/11/2018,06/10/2017,06/04/2015 ,06/02/2014,06/01/2013,04/22/2011,05/09 Influenza Quadrivalent, with preservative (Fluzone; Afluria) 6mo and older 05/24/2012,07/26/2010,06/02/2009 Influenza trivalent, with pr eservative (Fluzone; Afluria) 6mo and older 06/06/2016,07/17/2005,07/01/2004 Influenza, Unspecified 07/01/2007 MMR, measles mumps and rubel la Live (Priorix; M-M-R II) 12mo and older 08/25/2007,11/18/2004 Meningococcal MCV4P 06/17/2019,06/02/2014 Pneumococcal Conjugate Vacci ne, 7 Valent 11/18/2004,07/01/2004,2003,09/27 Tdap Tetanus diptheria acell ular pertussis (Boostrix; Adacel) 7yo and older 02/14/2025,06/02/2014 Varicella live (Varivax) 12m o and older 08/25/2007,07/01/2005,07/01/2004 Social History Tobacco Use Types Packs/Day Years Used Date Smoking Tobacco: Never Smokeless Tobacco: Never Tobacco Cessation:Counseling Given: Not Answered Sex and Gender Information Value Date Recorded Sex Assigned at Not on file Legal Sex Male 6:44 AM EST Gender Identity Not on file Sexual Orientation Not on file Obstetrics History Last Filed Vital Signs Vital Sign Reading Time Taken Comments Blood Pressure 97/57 02/14/2025 2:12 PM EDT Pulse 79 02/14/2025 2:12 PM EDT Temperature - - Respiratory Rate - - Oxygen Saturation - - Inhaled Oxygen Concentration - - Weight 66.7 kg (147 lb) 02/14/2025 2:12 PM EDT Height 160 cm (5' 3 ) 02/14/2025 2:12 PM EDT Body Mass Index 26.04 02/14/2025 2:12 PM EDT Plan of Treatment Upcoming Encounters Date Type Department Care Team (Late st Contact Info) Description 02/15/2026 2:00 PM EDT Office Visit Internal Medicine - [address] [phone] Ross Segovia MD [address] [place] [address] Health Maintenance Due Date Last Done Comments Pneumococcal Vaccine: Pediatrics (0 to 5 Years) and At-Risk Patients (6 to 49 Years) (1 of 1 - PPSV23, PCV20, or PCV21) 2009 11/18/2004, 07/01/2004, 2003, Additional history exists HPV Vaccines (1 - Male 3-dose series) 2018 Meningococcal B Vaccine (1 of 2 - Standard) 2019 HIV Screening 10/06/2023 Hepatitis C Screening 10/06/2023 Social Influencers of Health Screening 10/06/2023 Depression Screening 09/07/2024 COVID-19 Vaccine ( season) 2025 07/07/2023, 09/07/2021, 02/06/2021, Additional history exists Influenza Vaccine (#1) 2025 , 06/09/2023, 07/30/2022, Additional history exists Cholesterol Screening (Lipid Panel) 02/14/2030 02/14/2025 DTaP,Tdap,and Td Vaccines (8 - Td or Tdap) 02/14/2035 02/14/2025, 06/02/2014, 06/02/2008, Additional history exists RSV Immunization Adult Patients (1 - 1-dose 75+ series) 2078 Hepatitis B Vaccines Completed 01/25/2004, 2003, 2003 HIB Vaccines Completed 11/18/2004, 11/06, 2003, Additional history exists MMR Vaccines Completed 08/25/2007, 11/18/2004 Varicella Vaccines Completed 08/25/2007, 1 , 07/01/2004 IPV Vaccines Completed 06/02/2008, 11/05, 2003, Additional history exists Hepatitis A Vaccines Completed 12/10/2017, 06/10/20 Meningococcal ACWY Vaccine Completed 06/17/2019, RSV Immunization Patients Under 20 months Aged Out No longer eligible based on patient's age to complete this topic Procedures Procedure Name Priority Date/Time Associated Diagnosis Comments LIPID PANEL WITH REFLEX TO DIRECT LDL Routine 02/14/2025 2:47 PM EDT Screening for hyperlipidemia from Last 3 Months or Most Recently Relevant to Health Maintenance Results * (ABNORMAL) Lipid panel with reflex to direct LDL (02/14/2025 2:47 PM EDT) Cholesterol 126 0 - 200 mg/dL LAB CHEMISTRY METHOD 02/14/2025 7:02 PM EDT [facility] Triglycerides 242(H) 0 - 150 mg/dL LAB CHEMISTRY METHOD 02/14/2025 7:02 PM EDT [facility] HDL 38(L) >=40 mg/dL LAB CHEMISTRY METHOD 02/14/2025 7:02 PM EDT [facility] LDL Calculated 40 0 - 100 mg/dL LAB CHEMISTRY METHOD 02/14/2025 7:02 PM EDT [facility] VLDL Cholesterol Paul 48.4 mg/dL LAB CHEMISTRY METHOD 02/14/2025 7:02 PM EDT [facility] Non HDL Chol. (LDL+VLDL) 88 <145 mg/dL LAB CHEMISTRY METHOD 02/14/2025 7:02 PM EDT [facility] Chol/HDL Ratio 3.3 0.0 - 4.4 LAB CHEMISTRY METHOD 02/14/2025 7:02 PM EDT [facility] Blood Venous blood specimen / Unknown Venipuncture / Unknown 02/14/2025 2:47 PM EDT 02/14/2025 2:47 PM EDT Ross Segovia MD LAB BLOOD ORDERABLES Final Res ult [facility] [address] [place] [address], from Last 3 Months or Most Recently Relevant to Health Maintenance [place] [address] [place] [address] [employer] Care Teams Gas Inspector Relationship Specialty Start Date End Date Ross Segovia MD [address] [place] [address] PCP - General Internal Medicine 11/11/24
--- OUTSIDE RECORDS SUMMARY | 2025-08-08 14:54 | XMS_ITS | Encounter Summary ---
Author Organization [facility] Address [address] [place] [address] Care Team Providers Care Pneumatic Systems Operator Name Role Phone Nicol Gordillo MD Primary Care Provider [phone] Reason for Visit * Reason Comments Medication Refill Encounter Details Date Type Department Care Team ([facility] st Contact Info) Description 09/25/2022 Refill [facility] Ophthalmology, [address], [address] [place] [address] Berenice Barba MD [address] [place] [address] [address] [place] [address] Glaucoma suspect of both eyes Social History [...] preglaucoma documented in this encounter Care Teams Pneumatic Systems Operator Relationship Specialty Start Date End Date Nicol Gordillo MD [address] [place] [address] PCP - General 05/22/16 documented as of this encounter
--- OUTSIDE RECORDS SUMMARY | 2025-08-08 14:54 | XMS_ITS | Encounter Summary ---
Author Organization [facility] Address [address] [place] [address] Phone Care Team Providers Care Proof Passer Name Role Phone Nicol Gordillo MD Primary Care Provider [phone] Reason for Visit * Reason Onset Date Comments Med Refill Med Refill 08/30/2020 Med Refill 09/04/2020 Encounter Details Date Type Department Care Team (Late st Contact Info) Description 08/25/2020 [facility]ill [facility] [address] [address] Kailey Mcdonald MD [address] [place] [address] Slow transit constipation Social History Tobacco Use Types Packs/Day Years Used Date Smoking Tobacco: Never Assessed Sex and Gender Information Value Date Recorded Sex Assigned at Male 06/27/2020 2:26 PM EDT Legal Sex Male 6:25 PM EDT Gender Identity Male 06/27/2020 2:26 PM EDT Sexual Orientation Straight 06/27/2020 2: 26 PM EDT documented as of this encounter Miscellaneous Notes * Telephone Encounter - Sarah Zaragoza MA - 08/25/2020 12:22 PM EST Refill request for miralax Last wcc 06/27/20 Last refill 06/14/20 documented in this encounter Plan of Treatment Not on file documented as of this encounter Visit Diagnoses Diagnosis Slow transit constipation documented in this encounter Care Teams Proof Passer Relationship Specialty Start Date End Date Nicol Gordillo MD [address] [place] [address] PCP - General 01/13/18 06/02/24 documented as of this encounter
--- OUTSIDE RECORDS SUMMARY | 2025-08-08 14:54 | XMS_ITS | Encounter Summary ---
Author Organization [facility] Address [address] [place] [address] Care Team Providers Care Cleaner And Dyer Name Role Phone Nicol Gordillo MD Primary Care Provider [phone] Reason for Visit * Reason Comments Medication Refill Encounter Details Date Type Department Care Team ([facility] st Contact Info) Description 01/18/2023 Refill [facility] [place] [address] [place] [address] Daxa Guadalupe MD [address] [place] [address] Focal epilepsy Social History Tobacco Use Types [...] Telephone Encounter - Maura Lozano RN - 01/19/2023 9:00 AM EDT Refill request received for Oxtellar XR 600mg. Dose verified with last office visit on 05/25/2020 (taking 1500mg daily- two 600mg tabs and one 300mg tab). There is no follow up on file. There were scheduled follow up visits on 09/12/22, 09/29/22 and 10/03/22but all were no showsDisha Ramirez also has not had any labs completed since 2019. Dr. Aldo Dominguez- Please advise on refill request. documented in this encounter Plan of Treatment Not on file documented as of this encounter Visit Diagnoses Diagnosis Focal epilepsy documented in this encounter Care Teams Cleaner And Dyer Relationship Specialty Start Date End Date Nicol Gordillo MD [address] [place] [address] PCP - General 05/22/16 documented as of this encounter
--- OUTSIDE RECORDS SUMMARY | 2025-08-08 14:54 | XMS_ITS | Encounter Summary ---
Author Organization [facility] Address [address] [place] [address] Care Team Providers Care Air Defence Officer Name Role Phone Nicol Gordillo MD Primary Care Provider [phone] Reason for Visit * Reason Comments Medication Refill Encounter Details Date Type Department Care Team ([facility] st Contact Info) Description 02/12/2023 Refill [facility] Gastroenterology, [place] [address] [place] [address] Ara Jordan MD [address] [place] [address] Slow transit constipation Social History Tobacco Use [...] Telephone Encounter - Kelly Brown RN - 02/12/2023 1:40 PM EDT Last appt: 10/13/22 Next appt: 10/13/23 Weight: 66.5 kg Allergies: reviewed Current dosage: Senna 1 1/2 tablet twice everyday Pt of SS documented in this encounter Plan of Treatment Not on file documented as of this encounter Visit Diagnoses Diagnosis Slow transit constipation documented in this encounter Care Teams Air Defence Officer Relationship Specialty Start Date End Date Nicol Gordillo MD [address] [place] [address] PCP - General 05/22/16 documented as of this encounter
--- OUTSIDE RECORDS SUMMARY | 2025-08-08 14:55 | XMS_ITS | Encounter Summary ---
Author Organization [facility] Address [address] [place] [address] Phone Care Team Providers Care Route Delivery Service Driver Name Role Phone Nicol Gordillo MD Primary Care Provider [phone] Reason for Visit * Reason Comments Med Refill Encounter Details Date Type Department Care Team (Late st Contact Info) Description 11/02/2021 [facility]ill [facility] [address] [address] Nicol Gordillo MD [address] [place] [address] Asthma, unspecified asthma severity, unspecified whether complicated, [...] persistent documented in this encounter Care Teams Route Delivery Service Driver Relationship Specialty Start Date End Date Nicol Gordillo MD [address] [facility] [place] [address] PCP - General 01/13/18 06/02/24 documented as of this encounter
--- OUTSIDE RECORDS SUMMARY | 2025-08-08 14:55 | XMS_ITS | Encounter Summary ---
Author Organization [facility] Address [address] [place] [address] Phone Care Team Providers Care Ski Patroller Name Role Phone Nicol Gordillo MD Primary Care Provider [phone] Reason for Visit * Reason Comments Med Refill Encounter Details Date Type Department Care Team (Late st Contact Info) Description 06/19/2022 [facility]ill [facility] [address] [address] Candis Leonard MD [address] [place] [address] Asthma, unspecified asthma severity, unspecified whether complicated, [...] encounter Miscellaneous Notes * Telephone Encounter - Florence Garnica CMA - 06/19/2022 12:38 PM EDT Please send in new RX for either ventolin or proventil. Thanks * Telephone Encounter - Florence Garnica CMA - 06/19/2022 11:02 AM EDT Please refuse RX. Insurance no longer covering Pro air. Please send in new RX for either ventolin or Proventil. Thanks Forward to Dr. Leonard- please refuse as I am unable to do so due to Epic update. Shama. Thanks documented in this encounter Plan of Treatment Not on file documented as of this encounter Visit Diagnoses Diagnosis Asthma, unspecified asthma severity, unspecified whether complicated, unspecified whether persistent documented in this encounter Care Teams Ski Patroller Relationship Specialty Start Date End Date Nicol Gordillo MD 7 [facility] [place] [address] PCP - General 01/13/18 06/02/24 documented as of this encounter
--- OUTSIDE RECORDS SUMMARY | 2025-08-08 14:55 | XMS_ITS | Encounter Summary ---
Author Organization [facility] Address [address] [place] [address] Phone Care Team Providers Care Novelties Sales Representative Name Role Phone Nicol Gordillo MD Primary Care Provider [phone] Reason for Visit * Reason Comments Med Refill Encounter Details Date Type Department Care Team (Late st Contact Info) Description 11/25/2022 [facility]ill [facility] [address] [address] Caden Wooten MD [address] [place] [address] Asthma, unspecified asthma severity, unspecified whether complicated, unspecified whether persistent Social History Tobacco Use Types Packs/Day Years Used Date Smoking Tobacco: Never Assessed Hunger/Food Answer Date Recorded In the last 12 months, did y ou or your family ever eat less than you felt you should because there wasn't enough money for food? No 07/30/2022 Stable Housing Answer Date Recorded Are you worried that in the next 2 months you may not have stable housing? No 07/30/2022 Transportation Concerns Answer Date Rec orded In the last 12 months, have you or your family ever had to go without healthcare because you didn't have a way to get there? No 07/30/2022 Hazards in Home Answer Date Recorded Think about the place you li ve. Do you have problems with any of the following? Pests (mice or roaches), mold, no/not working smoke detectors, water leaks, no window guards. No 2021 Financing Utilities Answer Date Recorde d In the last 12 months, has t he electric, gas, oil, or water company threatened to shut off your services in your home? No 07/30/2022 Safety at Home Answer Date Recorded Are you or your family worried about feeling saf e in your home? No 07/30/2022 Outside Support Answer Date Recorded Do you feel that you need mo re support from other people or programs to help you care for yourself or your family? No 07/30/2022 Understanding Health Concerns Answer Da te Recorded Do you need help understandi ng your or your child's healthcare needs (diagnosis, medications, plan, etc.)? No 07/30/2022 Financing Health Concerns Answer Date R ecorded In the last 12 months, was t here a time when your child needed to see a doctor or get medications or supplies but could not because of cost? No 07/30/2022 Missing School or Work Answer Date Patrick rded Did you or your child miss s chool or work because of a health problem that could have been avoided? No 07/30/2022 Sex and Gender Information Value Date Recorded Sex Assigned at Male 06/27/2020 2:26 PM EDT Legal Sex Male 6:25 PM EDT Gender Identity Male 06/27/2020 2:26 PM EDT Sexual Orientation Straight 06/27/2020 2: 26 PM EDT documented as of this encounter Miscellaneous Notes * Telephone Encounter - Nicol Gordillo MD - 11/26/2022 10:50 AM EDT I deleted the refill and entered a new rx for this, this may avoid the refusal. Please call parent,if he is really needing this much Albuterol we need to see him, either here or by Dr Solis. Thanks! * Telephone Encounter - Florence Garnica CMA - 11/25/2022 1:00 PM EDT Refill too soon Sent on 09/22/22 with [address] Gordillo. Thanks documented in this encounter Plan of Treatment Not on file documented as of this encounter Visit Diagnoses Diagnosis Asthma, unspecified asthma severity, unspecified whether complicated, unspecified whether persistent documented in this encounter Care Teams Novelties Sales Representative Relationship Specialty Start Date End Date Nicol Gordillo MD [address] [place] [address] PCP - General 01/13/18 06/02/24 documented as of this encounter
--- OUTSIDE RECORDS SUMMARY | 2025-08-08 14:55 | XMS_ITS | Encounter Summary ---
Author Organization [facility] Address [address] [place] [address] Phone Care Team Providers Care Biomedical Scientist Name Role Phone Nicol Gordillo MD Primary Care Provider [phone] Reason for Visit * Reason Comments Med Refill Encounter Details Date Type Department Care Team (Late st Contact Info) Description 12/08/2021 [facility]ill [facility] [address] [address] Nicol Gordillo MD [address] [place] [address] Asthma, unspecified asthma severity, unspecified whether complicated, [...] Telephone Encounter - Nicol Gordillo MD - 12/09/2021 10:16 AM EDT There have been very many refill requests for this over the past few months. Last I saw him in June, he was doing very well off his preventer. I am not sure why we've been getting so many requests for this, can you check with the pharmacy to find out how many refills he has actually picked up since June? And whether this current request is automatically generated by the pharmacy or does he actually need it? Thanks. * Telephone Encounter - Anisha Galan MA - 12/09/2021 8:14 AM EDT Refill request for ProAir Last [facility] 07/03/21 Refilled 12/04/21 Please review documented in this encounter Plan of Treatment Not on file documented as of this encounter Visit Diagnoses Diagnosis Asthma, unspecified asthma severity, unspecified whether complicated, unspecified whether persistent documented in this encounter Care Teams Biomedical Scientist Relationship Specialty Start Date End Date Nicol Gordillo MD [address] [facility] [place] [address] PCP - General 01/13/18 06/02/24 documented as of this encounter
--- OUTSIDE RECORDS SUMMARY | 2025-08-08 14:55 | XMS_ITS | Encounter Summary ---
Author Organization [facility] Address [address] [place] [address] Phone Care Team Providers Care Livestock Ranch Hand Name Role Phone Nicol Gordillo MD Primary Care Provider [phone] Reason for Visit * Reason Comments Med Refill Encounter Details Date Type Department Care Team (Late st Contact Info) Description 11/18/2021 [facility]ill [facility] [address] [address] Nicol Gordillo MD [address] [place] [address] Asthma, unspecified asthma severity, unspecified whether complicated, [...] persistent documented in this encounter Care Teams Livestock Ranch Hand Relationship Specialty Start Date End Date Nicol Gordillo MD [address] [facility] [place] [address] PCP - General 01/13/18 06/02/24 documented as of this encounter
--- OUTSIDE RECORDS SUMMARY | 2025-08-08 14:55 | XMS_ITS | Encounter Summary ---
Author Organization [facility] Address [address] [place] [address] Phone Care Team Providers Care Do All Operator Name Role Phone Nicol Gordillo MD Primary Care Provider [phone] Encounter Details Date Type Department Care Team (Late st Contact Info) Description 01/24/2018 Conversion Encounter [facility] [address] [place] [address] Nicol Gordillo MD [address] [place] [address] Social History Tobacco Use Types Packs/Day Years [...] documented as of this encounter Visit Diagnoses Not on filedocumented in this encounter Care Teams Do All Operator Relationship Specialty Start Date End Date Nicol Gordillo MD [address] [place] [address] PCP - General 01/13/18 06/02/24 documented as of this encounter
--- OUTSIDE RECORDS SUMMARY | 2025-08-08 14:55 | XMS_ITS | Encounter Summary ---
Author Organization [facility] Address [address] [place] [address] Phone Care Team Providers Care Marketing And Communications Officer Name Role Phone Nicol Gordillo MD Primary Care Provider [phone] Reason for Visit * Reason Comments Med Refill Encounter Details Date Type Department Care Team (Late st Contact Info) Description 11/02/2021 [facility]ill [facility] [address] [address] Nicol Gordillo MD [address] [place] [address] Asthma, unspecified asthma severity, unspecified whether complicated, [...] persistent documented in this encounter Care Teams Marketing And Communications Officer Relationship Specialty Start Date End Date Nicol Gordillo MD [address] [facility] [place] [address] PCP - General 01/13/18 06/02/24 documented as of this encounter
--- OUTSIDE RECORDS SUMMARY | 2025-08-08 14:55 | XMS_ITS | Encounter Summary ---
Author Organization [facility] Address [address] [place] [address] Phone Care Team Providers Care Fan Installer Name Role Phone Nicol Gordillo MD Primary Care Provider [phone] Reason for Visit * Reason Comments Med Refill Encounter Details Date Type Department Care Team (Late st Contact Info) Description 07/16/2022 [facility]ill [facility] [address] [address] Candis Leonard MD [address] [place] [address] Asthma, unspecified asthma severity, unspecified whether complicated, [...] encounter Miscellaneous Notes * Telephone Encounter - Caden Wooten MD - 07/16/2022 9:56 AM EST Sent Ventolin * Telephone Encounter - Florence Garnica CMA - 07/16/2022 9:50 AM EST Pro air no longer covered by insurance Please send Proventil or Ventolin. Please refuse RX for pro air. Thanks documented in this encounter Plan of Treatment Not on file documented as of this encounter Visit Diagnoses Diagnosis Asthma, unspecified asthma severity, unspecified whether complicated, unspecified whether persistent documented in this encounter Care Teams Fan Installer Relationship Specialty Start Date End Date Nicol Gordillo MD [address] [facility] [place] [address] PCP - General 01/13/18 06/02/24 documented as of this encounter
--- OUTSIDE RECORDS SUMMARY | 2025-08-08 14:55 | XMS_ITS | Encounter Summary ---
Author Organization [facility] Address [address] [place] [address] Phone Care Team Providers Care Operations Scheduler Name Role Phone Nicol Gordillo MD Primary Care Provider [phone] Reason for Visit * Reason Comments Med Refill Encounter Details Date Type Department Care Team (Late st Contact Info) Description 12/30/2022 [facility]ill [facility] [address] [address] Nicol Gordillo MD [address] [place] [address] Asthma, unspecified asthma severity, unspecified whether complicated, [...] Telephone Encounter - Florence Garnica CMA - 12/30/2022 8:51 AM EDT Please refuse Refill too soon Thanks documented in this encounter Plan of Treatment Not on file documented as of this encounter Visit Diagnoses Diagnosis Asthma, unspecified asthma severity, unspecified whether complicated, unspecified whether persistent documented in this encounter Care Teams Operations Scheduler Relationship Specialty Start Date End Date Nicol Gordillo MD 7 [place] [address] PCP - General 01/13/18 06/02/24 documented as of this encounter
--- OUTSIDE RECORDS SUMMARY | 2025-08-08 14:55 | XMS_ITS | Encounter Summary ---
Author Organization [facility] Address [address] [place] [address] Phone Care Team Providers Care Facetor Name Role Phone Nicol Gordillo MD Primary Care Provider [phone] Reason for Visit * Reason Comments Med Refill Encounter Details Date Type Department Care Team (Late st Contact Info) Description 02/11/2022 Refill [facility] [address] [address] Caden Wooten MD [address] [place] [address] Asthma, unspecified asthma severity, unspecified whether complicated, [...] persistent documented in this encounter Care Teams Facetor Relationship Specialty Start Date End Date Nicol Gordillo MD 7 [facility] [place] [address] PCP - General 01/13/18 06/02/24 documented as of this encounter
--- OUTSIDE RECORDS SUMMARY | 2025-08-08 14:55 | XMS_ITS | Encounter Summary ---
Author Organization [facility] Address [address] [place] [address] Phone Care Team Providers Care Health Care Specialist Name Role Phone Nicol Gordillo MD Primary Care Provider [phone] Reason for Visit * Reason Comments Med Refill Encounter Details Date Type Department Care Team (Late st Contact Info) Description 04/25/2022 [facility]ill [facility] [address] [address] Nicol Gordillo MD [address] [place] [address] Asthma, unspecified asthma severity, unspecified whether complicated, [...] encounter Miscellaneous Notes * Telephone Encounter - Nancy Cesar MA - 2022 11:45 AM EDT Sent letter to home * Telephone Encounter - Nancy Cesar MA - 2022 11:21 AM EDT Left a message to call the office * Telephone Encounter - Nicol Gordillo MD - 04/25/2022 11:38 AM EDT Rx checked/sent. He has had frequent refills this summer. To Danette to call parent and check in, if he is truly needing the Albuterol this often should see me for an asthma check. Thanks! * Telephone Encounter - Anisha Galan MA - 04/25/2022 8:52 AM EDT Refill request for [facility] 07/03/21 Refilled 03/26/22 Please review documented in this encounter Plan of Treatment Not on file documented as of this encounter Visit Diagnoses Diagnosis Asthma, unspecified asthma severity, unspecified whether complicated, unspecified whether persistent documented in this encounter Care Teams Health Care Specialist Relationship Specialty Start Date End Date Nicol Gordillo MD 7 [facility] [place] [address] PCP - General 01/13/18 06/02/24 documented as of this encounter
--- OUTSIDE RECORDS SUMMARY | 2025-08-08 14:55 | XMS_ITS | Encounter Summary ---
Author Organization [facility] Address [address] [place] [address] Phone Care Team Providers Care Certified Pedorthotist Name Role Phone Nicol Gordillo MD Primary Care Provider Reason for Visit * Reason Comments Med Refill Encounter Details Date Type Department Care Team (Late st Contact Info) Description 01/08/2022 Refill [facility] [address] [address] Nicol Gordillo MD [address] [place] [address] Asthma, unspecified asthma severity, unspecified whether complicated, [...] encounter Miscellaneous Notes * Telephone Encounter - Tracy Pond - 01/08/2022 8:23 AM EDT Request for proair Just filled 12/27/21 documented in this encounter Plan of Treatment Not on file documented as of this encounter Visit Diagnoses Diagnosis Asthma, unspecified asthma severity, unspecified whether complicated, unspecified whether persistent documented in this encounter Care Teams Certified Pedorthotist Relationship Specialty Start Date End Date Nicol Gordillo MD 7 [place] [address] PCP - General 01/13/18 06/02/24 documented as of this encounter
--- OUTSIDE RECORDS SUMMARY | 2025-08-08 14:55 | XMS_ITS | Encounter Summary ---
Author Organization [facility] Address [address] [place] [address] Phone Care Team Providers Care Thread Cutter Name Role Phone Nicol Gordillo MD Primary Care Provider [phone] Reason for Visit * Reason Comments Med Refill Encounter Details Date Type Department Care Team (Late st Contact Info) Description 04/03/2022 [facility]ill [facility] [address] [address] Nicol Gordillo MD [address] [place] [address] Asthma, unspecified asthma severity, unspecified whether complicated, [...] Telephone Encounter - Caden Wooten MD - 04/08/2022 10:51 AM EDT Needs to call office prior to refill * Telephone Encounter - Anisha Galan MA - 04/08/2022 10:16 AM EDT I have called many times Can you refuse with a note to call the office please * Telephone Encounter - Anisha Galan MA - 04/03/2022 2:14 PM EDT LM to please call us back * Telephone Encounter - Caden Wooten MD - 04/03/2022 10:03 AM EDT Agree, if going through the ProAir this quickly, should be seen. Will hold on refill until you are able to make contact with her; thanks. * Telephone Encounter - Anisha Galan MA - 04/03/2022 9:41 AM EDT Refill request for ProAir Last [facility] 07/03/21 Refilled 03/26/22 Call to Nasir, as had many refills recently, one a week ago. LM to please call us. Please review documented in this encounter Plan of Treatment Not on file documented as of this encounter Visit Diagnoses Diagnosis Asthma, unspecified asthma severity, unspecified whether complicated, unspecified whether persistent documented in this encounter Care Teams Thread Cutter Relationship Specialty Start Date End Date Nicol Gordillo MD 7 [facility] [place] [address] PCP - General 01/13/18 06/02/24 documented as of this encounter
== END 2025-08-08 15:07 | disposition home or self-care (01) ==
PROVIDERS: PCP Internal Medicine; Visit Provider Psychiatry & Neurology Neurology
DX: G40.219 Localization-related (focal) (partial) symptomatic epilepsy and epileptic syndromes with complex partial seizures, intractable, without status epilepticus (principal); F84.0 Autistic disorder; J45.20 Mild intermittent asthma, uncomplicated
CPT/HCPCS: 99214